=== PATIENT | male | born 1945 | race Caucasian/White ===

== ENCOUNTER 2023-08-19 14:23 | Inpatient (IN) | payer MEDICARE, BC ==
[2023-08-19] VITALS (217 sets, daily range): BP systolic 111–202; BP diastolic 68–124; PULSE 61–75; TEMP 98; O2SAT 88–100
[~2023-08-19] VITALS: Ht 177.8 cm; Wt 77.7 kg
[2023-08-19 14:48] LABS: BASO % 0.3 % (0.0-2.0); EOS % 0.1 % (0.0-4.0); GRAN # 5.9 K/mm3 (1.4-6.5); GRAN % 80.6 % (42.2-75.2); HEMOGLOBIN 12.4 g/dl (13.5-18.0); LYMPH # 0.9 K/mm3 (1.2-3.4); LYMPH % 11.9 % (20.0-51.0); MEAN CELL VOLUME 95 fl (80.0-100.0); MEAN CORPUSCULAR HEMOGLOBIN 31 pg (27-31); MEAN CORPUSCULAR HGB CONC 33 g/dl (33.0-37.0); MEAN PLATELET VOLUME 10.1 fl (7.4-10.4); MONO # 0.5 K/mm3 (0.1-0.6); MONO % 6.7 % (1.7-9.3); PLATELET COUNT 174 K/mm3 (130-400)
[2023-08-19 15:02] LABS: INR 2.8 (0.8-3.0); PROTHROMBIN TIME 29.6 SECONDS (9.7-12.8)
[2023-08-19 15:13] LABS: ALBUMIN 3.8 g/dL (3.4-4.8); BILIRUBIN,TOTAL 3.4 mg/dL (0.2-1.2); CALCIUM 9.2 mg/dL (8.4-10.2); CREATININE, serum 2.24 mg/dL (0.72-1.25); POTASSIUM 3.7 mEq/L (3.5-4.5); TOTAL PROTEIN 6.5 g/dl (6.2-8.1)
[2023-08-19 15:22] LABS: TROPONIN-I 0.062 ng/mL (0.00-0.033)
[2023-08-19 15:30] LABS: URINE APPEARANCE CLEAR (CLEAR/HAZY); URINE BLOOD TRACE (NEGATIVE); URINE COLOR YELLOW (YELLOW); URINE GLUCOSE NEGATIVE (NEGATIVE); URINE KETONE 1+ (NEGATIVE); URINE NITRATE NEGATIVE (NEGATIVE); URINE PROTEIN(semi-quant) TRACE (NEGATIVE); URINE UROBILINOGEN 0.2 E.U/dL (0.2-1.0)
[2023-08-19] MEDS ORDERED: niCARdipine 200 ML IV ONE (15:30)
[2023-08-19 15:41] LABS: COLLECTION METHOD CLEAN CATCH
[2023-08-19] MEDS ORDERED: NS 1,000 ML IV ONE (15:45)
[2023-08-19] MEDS ORDERED: Ondansetron 4 MG/2 ML VIAL IV ONE (16:15)
[2023-08-19] MEDS ORDERED: Iodixanol-320 100 ML BOTTLE IV ONE (16:28)
[2023-08-19] MEDS ORDERED: NS 100 ML IV SCH (16:28)
[2023-08-19] MEDS ORDERED: JARDIANCE25 PO (16:45)
[2023-08-19] MEDS ORDERED: XYOSTED SQ (16:46)
[2023-08-19] MEDS ORDERED: FLOMAX 0.40.4 MG/CAP PO (16:46)
[2023-08-19] MEDS ORDERED: GLUCOPHAGE XR500 M1 PO (16:46)
[2023-08-19] MEDS ORDERED: OZEMPIC0.25 MG/02 SQ (16:47)
[2023-08-19] MEDS ORDERED: XARELTO20 MG PO (16:47)
[2023-08-19] MEDS ORDERED: TOPROL XL 50MG50 MG PO (16:48)
[2023-08-19] MEDS ORDERED: LIPITOR 10MG10 MG PO (16:49)
[2023-08-19] MEDS ORDERED: Ondansetron 4 MG/2 ML VIAL IV PRN (17:30)
[2023-08-19 17:32] LABS: MAGNESIUM 1.9 mg/dL (1.6-2.6); PHOSPHOROUS 4.1 mg/dL (2.3-4.7)
[2023-08-19] MEDS ORDERED: PREDNISONE20 MG PO (17:40)
--- NOTE | 2023-08-19 18:08 | NUR ---
PT ARRIVED TO ICU VIA BED ACCOMPANIED BY ED RN AND AND DAUGHTER. BP IS 160S/90S. CARDENE RUNNING IV INFUSION AT 2.5. PT HOOKED UP TO CRM MONITOR. PT IS INTERMITTENTLY ALERT AND ORIENTED X 2. PT AND FAMILY ORIENTED TO UNIT, ROOM, CALL LIGHT AND VISITING HOURS. ALL ALARMS ARE ON. FAMILY EDUCATED ON PT CONDITION AND PLAN OF CARE. CALL LIGHT IN REACH. PLAN OF CARE ONGOING.
[2023-08-19] MEDS ORDERED: niCARdipine 200 ML IV SCH (18:15)
[2023-08-19] MEDS ORDERED: *Potassium Replacement Protocol MC SCH (18:45)
--- NOTE | 2023-08-19 19:15 | NUR ---
REPORT RECEIVED FROM MACKENZIE MARLOW. PATIENT IN BED FIDGETING AND IMPULSIVE. REDIRECTED PATIENT. VERIFIED THAT BED ALARM IS ON. PATIENT ALERT AND ORIENTED X2 TO X1. CARDENE DRIP INFUSING AT THIS TIME, SEE DRIP TITRATION.
[2023-08-19] MEDS ORDERED: Albuterol/Ipratropium 3 MG-0.5 MG/3 ML Neb Soln IH PRN (20:00)
[2023-08-19] MEDS ORDERED: Dextrose 50% Water 25 GM/50 ML SYRINGE IV PRN (20:15)
[2023-08-19] MEDS ORDERED: Glucagon 1 MG VIAL IM PRN (20:15)
[2023-08-19] MEDS ORDERED: Dextrose (Glucose) 15 GM (4 x 3.75 GM) Chewable TABLET PACK PO PRN (20:15)
[2023-08-19] MEDS ORDERED: Furosemide 40 MG/4 ML VIAL IV ONE (20:45)
[2023-08-19] MEDS ORDERED: Insulin Lispro (HumaLOG) SQ SCH (21:00)
[2023-08-19] MEDS ORDERED: Atorvastatin 10 MG TAB PO SCH (21:00)
[2023-08-20] VITALS (786 sets, daily range): BP systolic 148–171; BP diastolic 73–100; PULSE 56–85; TEMP 98.1–98.7; O2SAT 74–100
[2023-08-20 04:46] LABS: BASO % 0.2 % (0.0-2.0); EOS % 0.1 % (0.0-4.0); GRAN # 7.4 K/mm3 (1.4-6.5); GRAN % 68.6 % (42.2-75.2); HEMATOCRIT 41.4 % (42.0-52.0); HEMOGLOBIN 14.2 g/dl (13.5-18.0); LYMPH # 1.9 K/mm3 (1.2-3.4); LYMPH % 17.8 % (20.0-51.0); MEAN CORPUSCULAR HEMOGLOBIN 31 pg (27-31); MEAN CORPUSCULAR HGB CONC 34 g/dl (33.0-37.0); MEAN PLATELET VOLUME 10.5 fl (7.4-10.4); MONO # 1.4 K/mm3 (0.1-0.6); PLATELET COUNT 213 K/mm3 (130-400)
[2023-08-20 04:50] LABS: MEAN CELL VOLUME 90 fl (80.0-100.0)
[2023-08-20 05:09] LABS: BILIRUBIN,TOTAL 3.5 mg/dL (0.2-1.2); CREATININE, serum 1.65 mg/dL (0.72-1.25); POTASSIUM 3.2 mEq/L (3.5-4.5)
[2023-08-20] MEDS ORDERED: Rivaroxaban 15 MG TAB PO SCH (09:00)
--- NOTE | 2023-08-20 09:28 | NUR ---
cable worker helper notes patient has altered mental status. SW notes patient's PCP is currently listed as Dr. De Leon whom has retired. SW contacted Lela from [facility] whom expressed patient's new doctor is Dr. Strickland. SW asked if patient has a DPOA-HC on file and patient does not. MARIA GUADALUPE and SW student met with patient to complete assessment. Patient confirmed he lives in [place] with his . SW asked to confirm patient's 's phone number, Eloisa, number on chart is [phone] and SW notes there is a number on patient's board with [phone]. Patient stated social work case manager needs to call the FBI because those numbers are incorrect. Patient stated his 's cell is [phone] and home is [phone]. SW explained those are the numbers listed for her. MARIA GUADALUPE notes patient's daughter, Shaniqua's phone number is listed as [phone] although patient was adamant that was his phone number. Patient again stated to call the FBI because " I am not apart of this study." Patient feels he was kidnapped and brought to the hospital. Patient confirmed PCP is Dr. Strickland, pharmacy is [facility]. SW asked about a DPOA-HC. 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 Patient asked for juice and water as payment for answering SW questions. SW relayed this to patient's nurse whom expressed they would get this to the patient. SW left a voicemail for patient's . Patient's daughter came to visit patient, MARIA GUADALUPE asked for additional information on patient. Patient's daughter, Shaniqua, explained her mother was on her way and would be able to provide this information. MARIA GUADALUPE met with patient's , Eloisa, whom confirmed her cell is P# [phone] and home P # [phone]. Eloisa confirmed patient does not have a DPOA-HC. No DME and is independent with ADLS at home normally. Patient was normally able to transport himself to and from appointments. MARIA GUADALUPE asked if the plan was for patient to return home at time of discharge. Eloisa asked if patient would discharge today, MARIA GUADALUPE explained it was unlikely unless he was medically ready for discharge. MARIA GUADALUPE asked if once he is medically ready for discharge if she had any concerns with him returning home. Eloisa stated no the plan was for him to go home when medically ready. MARIA GUADALUPE notified Harmony Cool, SW Director, of conversation with patient. Discharge plan: Home
[2023-08-20] MEDS ORDERED: hydrALAZINE 25 MG TAB PO SCH (10:28)
[2023-08-20] MEDS ORDERED: Potassium Bicarbonate/Citrate 20 MEQ Effervescent TAB PO SCH (11:00)
[2023-08-20] MEDS ORDERED: Clopidogrel 75 MG TAB PO SCH (16:40)
[2023-08-20] MEDS ORDERED: Hyoscyamine 0.125 MG Sublingual TAB PO PRN (17:00)
--- NOTE | 2023-08-20 20:00 | NUR ---
PER REPORT, PT IS CONFUSED. PT IS AWARE OF THE CONFUSION AND WILL TRY TO REDIRECT THE CONVERSATION TO AVOID ANSWERING THE QUESTION. PT STABLE ON ROUNDS. RESPIRATIONS EVEN AND UNLABORED. NO SIGN OF DISTRESS AT THIS TIME. CONTINUE WITH PLAN OF CARE.
--- NOTE | 2023-08-20 20:31 | NUR ---
Replaced 16F almonte with a 18F three way catheter for CBI purposes. Bleeding inside the previoue almonte drainage, almonte changed, irrigated with continuous NS. No cramping/ spasms at this time. Output is light pink. Tolerated sterile procedure well.
[2023-08-21] VITALS (891 sets, daily range): BP systolic 124–159; BP diastolic 69–99; PULSE 56–80; TEMP 98.5–98.7; O2SAT 82–100
[2023-08-21] MEDS ORDERED: NS Irrig Soln 3000 ML SOLN IR PRN (02:29)
[2023-08-21 04:33] LABS: BASO % 0.3 % (0.0-2.0); EOS # 0.1 K/mm3 (0.0-0.7); EOS % 0.6 % (0.0-4.0); GRAN # 8.9 K/mm3 (1.4-6.5); GRAN % 73.9 % (42.2-75.2); HEMATOCRIT 40.1 % (42.0-52.0); HEMOGLOBIN 13.9 g/dl (13.5-18.0); LYMPH # 1.7 K/mm3 (1.2-3.4); MEAN CELL VOLUME 89 fl (80.0-100.0); MEAN CORPUSCULAR HEMOGLOBIN 31 pg (27-31); MEAN CORPUSCULAR HGB CONC 35 g/dl (33.0-37.0); MONO # 1.3 K/mm3 (0.1-0.6); MONO % 10.9 % (1.7-9.3); PLATELET COUNT 229 K/mm3 (130-400); RED BLOOD COUNT 4.52 M/mm3 (4.20-5.60)
[2023-08-21 04:52] LABS: ALBUMIN 3.3 g/dL (3.4-4.8); BILIRUBIN,TOTAL 2.3 mg/dL (0.2-1.2); CALCIUM 9.2 mg/dL (8.4-10.2); CREATININE, serum 1.44 mg/dL (0.72-1.25); POTASSIUM 3.2 mEq/L (3.5-4.5); TOTAL PROTEIN 5.7 g/dl (6.2-8.1)
--- NOTE | 2023-08-21 07:21 | NUR ---
CBI INFUSING WITHOUT COMPLICATIONS, PINK TINGED URINE. NO COMPLICATIONS AT THIS TIME.
[2023-08-21] MEDS ORDERED: Potassium Bicarbonate/Citrate 20 MEQ Effervescent TAB PO SCH (08:00)
[2023-08-21] MEDS ORDERED: Heparin 5,000 UNITS/ML 1 ML VIAL IV PRN (09:00)
[2023-08-21] MEDS ORDERED: Heparin/D5W 250 ML IV SCH (09:00)
[2023-08-21 10:18] LABS: PARTIAL THROMBOPLASTIN TIME 31.2 SECONDS (26.0-37.0)
--- NOTE | 2023-08-21 11:53 | NUR ---
Data: Patient was sleeping during Seo Engineer rounds. Patient's Family stated that their Agricultural Adviser was on his way. Agricultural Adviser arrived while Seo Engineer was assisting Family with getting a recliner into the room. Assessment: A Family member had not slept and needed a space to be more comfortable during her visitation. Plan of Care: Seo Engineer provided supportive listening; found a recliner for the room. Family expressed their gratitude.
[2023-08-21 16:50] LABS: INR 1.3 (0.8-3.0); PROTHROMBIN TIME 14.3 SECONDS (9.7-12.8)
--- NOTE | 2023-08-21 20:00 | NUR ---
THIS NURSE WAS UNABLE TO INPUT THE PATIENTS ASSESSMENT BEFORE HE TRANSITIONED UP TO THE MEDICAL FLOOR. WAS UNABLE TO INPUT AN ICU ASSESSMENT AND COMPLETED THE MED/SURG ASSESSMENT. THE PATIENT WAS NOT ON A VENTILATOR, DID NOT HAVE AN CHRISTOPHER OR SWAN-ARACELIS CATHETER IN PLACE. THE PATIENT HAS A RASS SCORE OF ZERO. THE PATIENT WAS ADMITED WITH CONFUSION. THE PATIENT IS CAM-ICU NEGATIVE.
--- NOTE | 2023-08-21 22:30 | NUR ---
PATIENT IS RESTING IN BED. ALERT TO SELF AND PRESIDENT, NOT SITUATION, DATE OR LOCATION. PT WITH A [address] IYER CATHETER IN PLACE FOR CBI. PT CATHETER IS DRAINING A REDDISH/PINKISH COLOR. ROOM AIR, VITAL SIGNS STABLE. HEPARIN DRIP INFUSING AT 1450 UNITS. PT HAS BEEN EDUCATED ON NOT GETTING OUT OF THE BED AND TO CALL FOR ASSISTANCE. THE BED ALARM IS ACTIVATED AND THE PATIENT HAS THE CALL ROBERTSON. NO FAMILY AT THE BEDSIDE AT THIS TIME.
--- NOTE | 2023-08-21 22:51 | NUR ---
patient arrived from ICU around 2200, alert and oriented x3. denies chest pain and shortness of breath. IV in LF is patent, site is clean dry and intact with heparin gtt running at 14.5 ml/hr. CBI in process, urine is a light pink color and clear with 3-way almonte catheter in place. no skin abnormalities noted. pt has no further needs, questions, or concerns at this time. fall precautions in place, call light within reach. will continue to monitor.
[2023-08-22] VITALS (14 sets, daily range): BP systolic 133–172; BP diastolic 65–84; PULSE 52–77; TEMP 97.4–98.2
[2023-08-22 06:44] LABS: BASO % 0.4 % (0.0-2.0); EOS # 0.1 K/mm3 (0.0-0.7); EOS % 1.7 % (0.0-4.0); GRAN # 4.7 K/mm3 (1.4-6.5); HEMOGLOBIN 13.7 g/dl (13.5-18.0); LYMPH # 2.1 K/mm3 (1.2-3.4); LYMPH % 27.5 % (20.0-51.0); MEAN CELL VOLUME 89 fl (80.0-100.0); MEAN CORPUSCULAR HEMOGLOBIN 31 pg (27-31); MEAN CORPUSCULAR HGB CONC 35 g/dl (33.0-37.0); MONO # 0.8 K/mm3 (0.1-0.6); MONO % 10.1 % (1.7-9.3); PLATELET COUNT 232 K/mm3 (130-400); RED BLOOD COUNT 4.39 M/mm3 (4.20-5.60); REDCELL DISTRIBUTION WIDTH-CV 12.9 % (11.5-14.5)
[2023-08-22 06:57] LABS: ALBUMIN 3.1 g/dL (3.4-4.8); BILIRUBIN,TOTAL 1.8 mg/dL (0.2-1.2); CALCIUM 8.7 mg/dL (8.4-10.2); CREATININE, serum 1.07 mg/dL (0.72-1.25); POTASSIUM 3.4 mEq/L (3.5-4.5); TOTAL PROTEIN 5.5 g/dl (6.2-8.1)
--- NOTE | 2023-08-22 08:30 | NUR ---
PT RESTING IN BED UPON ENTERING, RISE AND FALL OF CHEST UPON ENTERING. FAMILY AT BEDSIDE. PT VERY SLEEPY NEEDING MULTIPLE ATTEMPTS TO WAKE HIM, DAUGHTER REPORTS THAT PT CALLED HER EARLY IN THE MORNING AND SEEMED MORE ORIETNED. DURING ASSESSMENT THIS NURSE ASKING PT TO VERIY NAME AND DATE OF M[place]LE TIME WITH NO ANSWER. PT FINALLY GAVE HIS DATE OF BUT REFUSED TO TELL THIS NURSE HIS NAME. WHEN ASKED WHERE HE WAS PT REPORTS "[place]". DAUGHTER AT BEDSIFE GETTING FRUSTRATED AND STATES THAT PT WAS COHERENT EARLIER. PT DENIES PAIN. HEPARIN RUNNING AT 14.5MLS/HR IN LEFT AC. CONTINUOUS BLADDER IRRIGATION RUNNING INTO IYER WITHOTU COMPLICATIONS. DURING SHIFT REPORT PEACH TINGED FLUID NOTED AND CURRENTLY REDDISH URINE NOTED. PT DENIES NEEDS. BED IN LOWEST POSITION, CALL LIGHT IN REACH, BED ALARM ON
[2023-08-22] MEDS ORDERED: Potassium Bicarbonate/Citrate 20 MEQ Effervescent TAB PO SCH (09:45)
--- NOTE | 2023-08-22 19:10 | NUR ---
THIS NURSE AND MACKENZIE PARMAR AT NURSING STATION POST REPORT WHEN THE PTS CHAIR ALARM GOES OFF AND A THUD WAS HEARD FROM THE BEDSIDE TABLE. UPON ENTERING PT IS ON HIS KNEES ATTEMPTING TO STAND AND BEDSIDE TABLE NO LONGER OVER PT. THIS NURSE AND TELEGRAPH MECHANIC AT BEDSIDE AND HELPED PT BACK TO THE CHAIR. PT DENIES HITTING HIS HEAD BUT MACKENZIE NOVOA TOLD THIS NURSE THAT SHE SAW PT HIT HIS HEAD. VITALS TAKEN AND DENA QUEEN CALLED AND UPDATED. THIS NURSE NOTIFIED HIM THAT PT IS ON A HEPARIN DRIP AND CURRENTLY HAS CONTINOUS BLADDER IRRIGATION GOING. JUJU RN AT BEDSIDE AND PT TRANSFERRED TO BED WITH WALKER. PT DENIES PAIN AT THIS TIME. SCANT AMOUNT OF BLEEDING NOTED AT PREVIOUS DISCONTINUED IV IN LEFT AC. DENA QUEEN AT BEDSIDE AND ASSESSING PT. PT HAS NO OBVIOUS NEEDS AND IMAGING ORDERED
[2023-08-23] VITALS (18 sets, daily range): BP systolic 105–164; BP diastolic 42–85; PULSE 58–86; TEMP 97.6–98.5
--- NOTE | 2023-08-23 04:27 | NUR ---
PT HAS CBI GOING T0 DEPENDENT DRAINAGE. PROVIDER NOTIFIED THAT PATIENT DOES NOT HAVE UROLOGY CONSULTED, WILL ALSO PASS ON TO DAY NURSE.
[2023-08-23] MEDS ORDERED: LR 1,000 ML IV SCH (05:00)
[2023-08-23 06:28] LABS: BASO % 0.3 % (0.0-2.0); EOS # 0.2 K/mm3 (0.0-0.7); EOS % 2.4 % (0.0-4.0); GRAN % 65.8 % (42.2-75.2); HEMATOCRIT 39.1 % (42.0-52.0); HEMOGLOBIN 13.6 g/dl (13.5-18.0); LYMPH # 1.7 K/mm3 (1.2-3.4); LYMPH % 21.9 % (20.0-51.0); MEAN CELL VOLUME 90 fl (80.0-100.0); MEAN CORPUSCULAR HEMOGLOBIN 31 pg (27-31); MEAN CORPUSCULAR HGB CONC 35 g/dl (33.0-37.0); MEAN PLATELET VOLUME 10.1 fl (7.4-10.4); MONO # 0.7 K/mm3 (0.1-0.6); MONO % 9.3 % (1.7-9.3); PLATELET COUNT 251 K/mm3 (130-400); RED BLOOD COUNT 4.34 M/mm3 (4.20-5.60)
[2023-08-23 06:50] LABS: CALCIUM 8.8 mg/dL (8.4-10.2); CREATININE, serum 1.13 mg/dL (0.72-1.25); POTASSIUM 3.8 mEq/L (3.5-4.5)
[2023-08-23] MEDS ORDERED: Lidocaine PF 2% (20 MG/ML) 5 ML VIAL ONE (10:19)
[2023-08-23] MEDS ORDERED: Hydrocortisone 1% Cream 30 GM TUBE TP PRN (12:45)
--- NOTE | 2023-08-23 12:53 | NUR ---
Bedside report completed with Luis Carlos MANN. Call light within reach, telemetry box in place, first set of vitals reviewed. Luis Carlos MANN denies questions/concerns at this time.
[2023-08-23] MEDS ORDERED: Regadenoson 0.08 MG/ML 5 ML SYRINGE IV SCH (13:43)
[2023-08-23] MEDS ORDERED: Potassium Bicarbonate/Citrate 20 MEQ Effervescent TAB PO ONE (14:00)
--- NOTE | 2023-08-23 15:36 | NUR ---
Lead Software Developer and MARIA GUADALUPE [place] met with patient to complete DPOA-HC. Patient verbalized understanding of DPOA for Healthcare decisions, however questioned any limits to decisions that DPOA can make. MARIA GUADALUPE advised this would give his designated person authority to make medical decisions if he were unable. Patient chose to designate his , Eloisa and daughter, Mica. 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 Patient provided signature and MARIA GUADALUPE and MARIA GUADALUPE [place] witnessed it. MARIA GUADALUPE placed a copy in chart, then provided original and copies to patient.
--- NOTE | 2023-08-23 18:04 | NUR ---
PT HEPARIN GTT WAS STOPPED BY RETAIL ANALYST STAFF WHILE PT WAS DOWN GETTING NANCY/CARDIOVERSION. CARDIOGRAPHER NOTICED THIS WHEN PT ARRIVED BACK UNIT. CARDIOGRAPHER THEN ASKED HOSPITALIST IF THEY WANTED THE HEPARIN GTT STARTED AGIAN OR LEFT ON HOLD- THEY DIRECTED CARDIOGRAPHER TO LEAVE THE HEPARIN ON HOLD UNTIL AFTER LEXISCAN RESULTS IN CASE PATIENT NEEDED TO GO TO RETAIL ANALYST. HOSPITALIST CALLED CARDIOGRAPHER AROUND [id number] AND SAID THAT HEPARIN GTT WILL NEED TO BE STARTED AGAIN BUT WE WILL NEED NEW BASELINE LABS AND TO REBOLUS THE PATIENT AND FOLLOW ORDER SET
[2023-08-23 19:24] LABS: PARTIAL THROMBOPLASTIN TIME 31.2 SECONDS (26.0-37.0)
--- NOTE | 2023-08-23 20:30 | NUR ---
UPON SHIFT ASSESSMENT, NANCY WAS AWAKE IN BED WITH BEDSIDE. ALTHOUGH HE SEEMED AXO X 4, CONVERSATION WAS NOT LUCID. PATIENT APPEARED TO CONFUSE STANDARDS OF LAW PRACTICE WITH STANDARDS OF MEDICAL INTERVENTIONS, INTERWINING PHRASES IN A NONSENSICAL MANNER, "HOW MANY POINTS IN THAT (POINTING TO IV BAG) WILL RESULT IN DIVORCE." THIS NURSE REPEATEDLY RE-ORIENTED AND PROVIDED EDUCATION ON TREATMENT AND PROCEDURES. CURRENT VS ARE WNL. TELE CURRENTLY SHOWS NS. NEUROS ARE WNL, HOWEVER, PATIENT'S JOKED THAT HE IS A MESSY EATER BECAUSE HE "...KEEPS MISSING HIS MOUTH." THIS NURSE DID NOT OBSERVE HIM EATING. COORDINATION SLUGGISH. BED ALARM BENEFIT SPECIALIST LIGHT WITHIN REACH.
[2023-08-23] MEDS ORDERED: Atorvastatin 40 MG TAB PO SCH (21:00)
--- NOTE | 2023-08-23 23:39 | NUR ---
ALERTED BY TELE-PATIENT HAS HAD MOBITZ tYPE 1 HEART BLOCK BUT IS CURRENTLY IN NS. CALL PLACED TO [facility]OSPITAL[facility]. TORB FOR EKG IN THE EVENT THAT ANOTHER ARRYTHMIA APPEARS. CALL PLACED TO TELE TO INQUIRE ABOUT TYPE 1 HEART CAN-REPORT IS THAT THERE ARE OCCASSIONALY MISSED BEATS WITH P-WAVES CLOSE TO T WAVES. ORDER FOR EKG PLACED.
[2023-08-24] VITALS (12 sets, daily range): BP systolic 113–159; BP diastolic 53–83; PULSE 56–72; TEMP 97.6–98.7
--- NOTE | 2023-08-24 02:40 | NUR ---
CALL PLACED TO HOSPITALISTCASPER. DURING DAYSHIFT, CBI WAS DC'D AND IYER PULLED. THROUGHOUT THE NIGHT PATIENT DID NOT URINATE. BLADDER SCAN REVEALED 455 ML URINE. URGED PATIENT TO TRY TO VOID AND ONLY 10 ML BLOOD WAS URINATED.TORB TO RESTART CBI WITH 20 SLOVAK IYER GIVEN. UROLOGY CONSULT PLACED. UPON INTIAL INSERTION OF IYER 200 ML DEWEY RED FLUID WAS VOIDED AND DRAINAGE SEEMED TO STALL. APPEALS SPECIALIST IRRIGATED AND BLOOD TINGED FLUID IS DRAINING FREELY INTO IYER BAG. CBI WAS RESUMED. PATIENT NOT TOLERATING INTERVENTIONS WELL AND IS FRUSTRATED. PATIENT EDUCATION WAS PROVIDED ON EMEREGENT NEED TO IRRIGATED BLADDER.
[2023-08-24] MEDS ORDERED: NS Irrig Soln 3000 ML SOLN IRP PRN (03:00)
[2023-08-24 05:15] LABS: BASO % 0.2 % (0.0-2.0); EOS # 0.2 K/mm3 (0.0-0.7); EOS % 2.7 % (0.0-4.0); GRAN % 73.4 % (42.2-75.2); HEMATOCRIT 38.4 % (42.0-52.0); HEMOGLOBIN 13.1 g/dl (13.5-18.0); LYMPH # 1.2 K/mm3 (1.2-3.4); LYMPH % 14.8 % (20.0-51.0); MEAN CELL VOLUME 90 fl (80.0-100.0); MEAN CORPUSCULAR HEMOGLOBIN 31 pg (27-31); MEAN CORPUSCULAR HGB CONC 34 g/dl (33.0-37.0); MEAN PLATELET VOLUME 9.8 fl (7.4-10.4); MONO # 0.7 K/mm3 (0.1-0.6); MONO % 8.5 % (1.7-9.3); PLATELET COUNT 276 K/mm3 (130-400); RED BLOOD COUNT 4.27 M/mm3 (4.20-5.60); REDCELL DISTRIBUTION WIDTH-CV 13.2 % (11.5-14.5)
[2023-08-24 05:30] LABS: PARTIAL THROMBOPLASTIN TIME 52.3 SECONDS (26.0-37.0)
[2023-08-24 05:32] LABS: CREATININE, serum 1.03 mg/dL (0.72-1.25)
--- NOTE | 2023-08-24 06:45 | NUR ---
PT RESTING IN BED. PT HAS CBI RUNNING WITH CLEAR YELLOW URINE. HEPARIN DRIP RUNNING. PT NPO FOR POSSIBLE CARDIAC CATH. BED ALARM ACTIVE. PT APPEARS AFIB ON TELE BRADYING DOWN TO 45 THEN BACK TO THE 60'S. 0745-SPOKE WITH REGARDING CONSULT. STATES WILL SEE LATER TODAY. 0800-FREDDY RN WITH CARDIOLOGY PAGED. 0815-SHAKIRA RN WITH CARDIOLOGY PAGED. SPOKE Bryce ROSENBERG TO CLARIFY PLAN FOR TODAY. STATES SHE WILL HAVE FREDDY MANN CALL ME WITH UPDATED PLAN.
--- NOTE | 2023-08-24 08:37 | NUR ---
,P BEDSIDE. UPDATING FAMILY. AWAITING CARDIOLOGY FOR PLAN ON CARDIAC CATH.
[2023-08-24] MEDS ORDERED: Docusate Sodium 100 MG CAP PO SCH (09:00)
[2023-08-24] MEDS ORDERED: Polyethylene Glycol 3350 17 GM PDS PO SCH (09:00)
[2023-08-24] MEDS ORDERED: Apixaban 5 MG TAB PO SCH (09:07)
--- NOTE | 2023-08-24 12:59 | NUR ---
0997-FAMILY CAME OUT OF THE ROOM YELLING THEY NEEDED HELP. STATED PT SNEEZED WHILE EATING BREAKFAST THEN BECAME VERY LETHARGIC. PT HAS NOTICABLE LEFT SIDED FACIAL DROOP. PT NOT ABLE TO SPEAK OR ANSWER QUESTIONS. PERRLA INTACT. PT HAS WEAK ELECTRICAL LINE WORKER ON LEFT AND SLIGHLY STRONGER ELECTRICAL LINE WORKER ON RIGHT. PT ABLE TO HOLD BILATERAL ARMS UP AGAINST GRAIVITY FOR 3 SECONDS. VSS. AND KENISHA FERNANDES ON FLOOR AND CAME BEDSIDE. HEAD CT ORDERED. OKAY TO CONTINUE HEPARIN PER . CALLED AND CAME BEDSIDE. PT TAKEN TO CT. PT'S FACIAL DROOP SLIGHTLY BETTER AND PT ANSWERING YES/NO QUESTIONS. 1100-PT TALKING IN SENTANCES, BUT IS NOT FULLY ORIENTED. SLIGHT LEFT FACIAL DROOP STILL NOTED. 1230-SPEECH CALLED FOR JACQUELIN.
[2023-08-24 13:10] LABS: PARTIAL THROMBOPLASTIN TIME 123.5 SECONDS (26.0-37.0)
--- NOTE | 2023-08-24 14:20 | NUR ---
Call Circuit Worker spoke with DENA Ledesma during rounds who advised patient had an acute change and there is concern for stroke. Later in the day, SW met with patient's and daughter outside of the room while patient was working with therapy. SW discussed post acute rehab and patient's family agree. First and only preference at this time is IPR. Patient's daughter feels patient would not want to go to SNF. SW contacted [facility] IPR Director and gave referral.
--- NOTE | 2023-08-24 19:42 | NUR ---
Call recieved from lab Ptt critical at 221. Heparin gtt stopped per protocol, however asked for redraw as this value is 2x the previous draw and drip rate was 1750 Units/HR.
--- NOTE | 2023-08-24 20:57 | NUR ---
CALL RECIEVED FROM LAB-PTT IS 141-TURNED PUMP OFF PER PROTOCOL. NEXT REDRAW IN 2HRS.
[2023-08-25] VITALS (12 sets, daily range): BP systolic 107–150; BP diastolic 55–81; PULSE 52–65; TEMP 97.7–98.5
[2023-08-25 00:02] LABS: PARTIAL THROMBOPLASTIN TIME 36.5 SECONDS (26.0-37.0)
--- NOTE | 2023-08-25 03:00 | NUR ---
ENTERED PATIENT'S ROOM. LOOP RECORDER INSCISION SITE HAD MODERATE BLEEDING. ABD PAD SOAKED. DRESSING CHANGED, ICE PACK APPLIED, GOWN AND BED LINENS CHANGED-NO FURTHER BLEEDING NOTED. IYER CARE PROVIDED.
[2023-08-25 07:00] LABS: BASO % 0.4 % (0.0-2.0); EOS # 0.2 K/mm3 (0.0-0.7); EOS % 2.8 % (0.0-4.0); GRAN # 4.2 K/mm3 (1.4-6.5); GRAN % 61.5 % (42.2-75.2); HEMOGLOBIN 11.9 g/dl (13.5-18.0); LYMPH # 1.7 K/mm3 (1.2-3.4); LYMPH % 25.3 % (20.0-51.0); MEAN CELL VOLUME 94 fl (80.0-100.0); MEAN CORPUSCULAR HEMOGLOBIN 31 pg (27-31); MEAN CORPUSCULAR HGB CONC 33 g/dl (33.0-37.0); MEAN PLATELET VOLUME 10.3 fl (7.4-10.4); MONO # 0.7 K/mm3 (0.1-0.6); MONO % 9.6 % (1.7-9.3); PLATELET COUNT 275 K/mm3 (130-400); REDCELL DISTRIBUTION WIDTH-CV 13.1 % (11.5-14.5)
[2023-08-25 07:04] LABS: HEMATOCRIT 36.6 % (42.0-52.0)
[2023-08-25 07:16] LABS: PARTIAL THROMBOPLASTIN TIME 92.3 SECONDS (26.0-37.0)
[2023-08-25 07:30] LABS: CALCIUM 8.8 mg/dL (8.4-10.2); CREATININE, serum 0.9 mg/dL (0.72-1.25); POTASSIUM 3.6 mEq/L (3.5-4.5)
[2023-08-25] MEDS ORDERED: Apixaban 5 MG TAB PO SCH (09:00)
--- NOTE | 2023-08-25 09:00 | NUR ---
HEPARIN DRIP WAS STOPPED BY THIS NURSE PER EMAR HOLD.
--- NOTE | 2023-08-25 20:00 | NUR ---
Assessment complete. A&O to self-conversation confused. VS WNL. TELE reporting SR. On RA. CBI infusing at a slow rate with light pink output noted. Family is at bedside. Right hand 20g flushes without difficulty. Discussed NPO status at 0000. Plan of care discussed for meds/CBI/calling for questions/concerns. Verbalizes understanding. Call light in reach/bed alarm on. Will monitor.
[2023-08-26] VITALS (12 sets, daily range): BP systolic 98–145; BP diastolic 58–74; PULSE 50–63; TEMP 97.9–98.5
--- NOTE | 2023-08-26 01:25 | NUR ---
Resting in bed eyes closed. No s/s of pain or discomfort noted. CBI infusing at a slow rate with light pink output noted. Call light in reach/bed alarm on. Will monitor.
--- NOTE | 2023-08-26 05:36 | NUR ---
Patient rested off an on this shift. CBI still running at a slow rate with light pink clear output. Is alert and oriented to place only. TELE reporting SR. VS stable. Right hand 20g flushes without difficulty. Currently on RA. Denies current questions/concerns. Call light in reach/bed alarm on. Will monitor.
--- NOTE | 2023-08-26 07:55 | NUR ---
Pt to CT via w/c.
[2023-08-26] MEDS ORDERED: Iohexol 300 - 100 ML VIAL IV ONE (08:04)
[2023-08-26] MEDS ORDERED: NS 100 ML IV SCH (08:05)
--- NOTE | 2023-08-26 08:25 | NUR ---
Pt returns to room from CT scan. and daughter at bedside. assisting patient with meal.
[2023-08-26 11:16] LABS: HEMOGLOBIN 11.9 g/dl (13.5-18.0); MEAN CELL VOLUME 93 fl (80.0-100.0); MEAN CORPUSCULAR HEMOGLOBIN 31 pg (27-31); MEAN CORPUSCULAR HGB CONC 34 g/dl (33.0-37.0); PLATELET COUNT 291 K/mm3 (130-400); RED BLOOD COUNT 3.83 M/mm3 (4.20-5.60); REDCELL DISTRIBUTION WIDTH-CV 13.1 % (11.5-14.5)
[2023-08-26 11:17] LABS: HEMATOCRIT 35.5 % (42.0-52.0)
[2023-08-26 11:32] LABS: CALCIUM 8.9 mg/dL (8.4-10.2); CREATININE, serum 1.15 mg/dL (0.72-1.25); POTASSIUM 4.3 mEq/L (3.5-4.5)
--- NOTE | 2023-08-26 19:44 | NUR ---
Pt sat up in chair this morning-x1 assist with walker/ IV to RH without any s/s IV related complications. Had urogram this morning. Denies pain or needs throughout shift. Fall precautions in place. Neuro checks completed as ordered. Pt has weak welder tack strength but equal. and daughter at bedside throughout shift.
--- NOTE | 2023-08-26 20:30 | NUR ---
UPON SHIFT ASSESSMENT, NANCY WAS IN BED AWAKE AND AXO ONLY TO SELF. CBI DRAINING DEWEY RED FLUID. PATIENT DENIES ANY PAIN OR SOA. LUNG SOUNDS DIMINISHED. TELE SHOWS AFIB RATE CONTROLLED AND VS ARE WNL DRESSING OVER LOOP RECORDER PLACEMENT IS CDI. CALL LIGHT WITHIN REACH.
[2023-08-27] VITALS (7 sets, daily range): BP systolic 110–133; BP diastolic 63–75; PULSE 52–60; TEMP 97.6–98.2
[2023-08-27 06:05] LABS: BASO % 0.3 % (0.0-2.0); EOS # 0.2 K/mm3 (0.0-0.7); EOS % 2.6 % (0.0-4.0); GRAN # 4.5 K/mm3 (1.4-6.5); GRAN % 61.9 % (42.2-75.2); HEMOGLOBIN 12.2 g/dl (13.5-18.0); LYMPH # 1.9 K/mm3 (1.2-3.4); LYMPH % 25.8 % (20.0-51.0); MEAN CELL VOLUME 92 fl (80.0-100.0); MEAN CORPUSCULAR HEMOGLOBIN 31 pg (27-31); MEAN CORPUSCULAR HGB CONC 33 g/dl (33.0-37.0); MEAN PLATELET VOLUME 10.3 fl (7.4-10.4); MONO # 0.7 K/mm3 (0.1-0.6); MONO % 9.1 % (1.7-9.3); PLATELET COUNT 350 K/mm3 (130-400); RED BLOOD COUNT 3.97 M/mm3 (4.20-5.60); REDCELL DISTRIBUTION WIDTH-CV 13.1 % (11.5-14.5)
[2023-08-27 06:09] LABS: HEMATOCRIT 36.7 % (42.0-52.0)
[2023-08-27 06:25] LABS: CALCIUM 9.1 mg/dL (8.4-10.2); CREATININE, serum 1.12 mg/dL (0.72-1.25); POTASSIUM 4.1 mEq/L (3.5-4.5)
[2023-08-27] MEDS ORDERED: metFORMIN XR 500 MG TAB PO SCH (08:00)
--- NOTE | 2023-08-27 09:40 | NUR ---
Patient alert and oriented to self. Patient denies pain at this time. Patient CBI currently inplace. Patient expressed " why are we in the porch" this morning. Patient reoriented by this nurse. Patient is room air. Sepulveda drainage is red with some clots. Patient's family at bedside. call light within reach. bed at lowest position and bed alarm on.
[2023-08-27] MEDS ORDERED: LIPITOR 40MG TA40 MG PO (12:40)
[2023-08-27] MEDS ORDERED: IPRATROPIUM BROM3 M1 IH (12:40)
[2023-08-27] MEDS ORDERED: LEVSIN0.125 M1 PO (12:40)
[2023-08-27] MEDS ORDERED: APRESOLINE 25MG25 MG PO (12:40)
[2023-08-27] MEDS ORDERED: PLAVIX 75MG TAB75 MG PO (12:40)
[2023-08-27] MEDS ORDERED: ELIQUIS 5MG PO (12:40)
[2023-08-27] MEDS ORDERED: BETAPACE 80MG80 MG PO (12:41)
[2023-08-27] MEDS ORDERED: HYDROCORTISON28.4 GM TP (12:41)
[2023-08-27] MEDS ORDERED: INSULIN HUMA100 U/ML SQ (12:41)
[2023-08-27] MEDS ORDERED: MIRALAX PA17 GM/Dose PO (12:42)
[2023-08-27] MEDS ORDERED: COLACE 100100 MG/CAP PO (12:42)
[2023-08-27] MEDS ORDERED: GLUCOPHAGE XR500 M1 PO (12:42)
[2023-08-27] MEDS ORDERED: [UNRECOGNIZED DRUG - CODE] IRP (12:42)
[2023-08-27] MEDS ORDERED: RITE AID GLUCOSE4 G1 PO (12:43)
[2023-08-27] MEDS ORDERED: K-DUR20 MEQ PO (12:44)
--- NOTE | 2023-08-27 13:05 | NUR ---
Patient report was given to IPR nurse. Patient left with iv inplace and tele aswell but discontinued by ipr nurse upon arrival. Patient cbi inplace. patient family accompanied patient to IPR room.
--- NOTE | 2023-08-27 14:22 | NUR ---
Patient to discharge to [facility] today.
== END 2023-08-27 13:05 | DRG 260 ==
LOC: COL.ER 14:23 → ICU 17:26 → MEDICAL 08-21 22:00
PROVIDERS: Hospitalist; Internal Medicine; Nurse Practitioner Family; Physician Assistant; ADMIT Internal Medicine
PROC: 0JH632Z Insertion of Monitoring Device into Chest Subcutaneous Tissue and Fascia, Percutaneous Approach (ICD-10-PCS; principal; 2023-08-19)
PROC: 5A2204Z Restoration of Cardiac Rhythm, Single (ICD-10-PCS; 2023-08-19)
DX: I16.1 Hypertensive emergency (principal); G93.41 Metabolic encephalopathy; I63.49 Cerebral infarction due to embolism of other cerebral artery; J96.01 Acute respiratory failure with hypoxia; J90 Pleural effusion, not elsewhere classified; N17.9 Acute kidney failure, unspecified; G72.81 Critical illness myopathy; I11.0 Hypertensive heart disease with heart failure; I50.9 Heart failure, unspecified; R74.02 Elevation of levels of lactic acid dehydrogenase [LDH]; I48.91 Unspecified atrial fibrillation; E11.9 Type 2 diabetes mellitus without complications; D64.9 Anemia, unspecified; E78.5 Hyperlipidemia, unspecified; N40.0 Benign prostatic hyperplasia without lower urinary tract symptoms; R31.9 Hematuria, unspecified; I65.23 Occlusion and stenosis of bilateral carotid arteries; Z79.84 Long term (current) use of oral hypoglycemic drugs; Z87.891 Personal history of nicotine dependence; R53.81 Other malaise
CPT/HCPCS: A4314; A9500-JZ; C1764; J1644; J1815; J1940; J2404; J2704; J2785; J7030; Q9967

== ENCOUNTER 2023-08-27 11:15 | Inpatient (IN) | payer MEDICARE, BC ==
[~2023-08-27] VITALS: Ht 177.8 cm; Wt 79.4 kg
[~2023-08-27 11:15] MED LIST: FLOMAX 0.40.4 MG/CAP PO; GLUCOPHAGE XR500 M1 PO; JARDIANCE25 PO; LIPITOR 10MG10 MG PO; OZEMPIC0.25 MG/02 SQ; PREDNISONE20 MG PO; TOPROL XL 50MG50 MG PO; XARELTO20 MG PO; XYOSTED SQ
[2023-08-27] MEDS ORDERED: LIPITOR 40MG TA40 MG PO (12:40)
[2023-08-27] MEDS ORDERED: APRESOLINE 25MG25 MG PO (12:40)
[2023-08-27] MEDS ORDERED: PLAVIX 75MG TAB75 MG PO (12:40)
[2023-08-27] MEDS ORDERED: ELIQUIS 5MG PO (12:40)
[2023-08-27] MEDS ORDERED: IPRATROPIUM BROM3 M1 IH (12:40)
[2023-08-27] MEDS ORDERED: LEVSIN0.125 M1 PO (12:40)
[2023-08-27] MEDS ORDERED: HYDROCORTISON28.4 GM TP (12:41)
[2023-08-27] MEDS ORDERED: BETAPACE 80MG80 MG PO (12:41)
[2023-08-27] MEDS ORDERED: INSULIN HUMA100 U/ML SQ (12:41)
[2023-08-27] MEDS ORDERED: [UNRECOGNIZED DRUG - CODE] IRP (12:42)
[2023-08-27] MEDS ORDERED: MIRALAX PA17 GM/Dose PO (12:42)
[2023-08-27] MEDS ORDERED: COLACE 100100 MG/CAP PO (12:42)
[2023-08-27] MEDS ORDERED: GLUCOPHAGE XR500 M1 PO (12:42)
[2023-08-27] MEDS ORDERED: RITE AID GLUCOSE4 G1 PO (12:43)
[2023-08-27] MEDS ORDERED: K-DUR20 MEQ PO (12:44)
[2023-08-27] MEDS ORDERED: Naloxone 0.4 MG/ML VIAL IV PRN (14:15)
[2023-08-27] MEDS ORDERED: Acetaminophen 325 MG TAB PO PRN (14:15)
[2023-08-27] MEDS ORDERED: Sennosides/Docusate 8.6-50 MG TAB PO PRN (14:15)
[2023-08-27] MEDS ORDERED: Docusate Sodium 100 MG CAP PO PRN (14:15)
[2023-08-27] MEDS ORDERED: Polyethylene Glycol 3350 17 GM PDS PO PRN (14:15)
[2023-08-27 14:20] VITALS: BP 110/65; PULSE 55; TEMP 97.6
[2023-08-27 14:31] VITALS: BP_SYST 110
[2023-08-27] MEDS ORDERED: Hyoscyamine 0.125 MG Sublingual TAB PO PRN (14:45)
[2023-08-27] MEDS ORDERED: Hydrocortisone 1% Cream 30 GM TUBE TP PRN (14:45)
[2023-08-27] MEDS ORDERED: Albuterol/Ipratropium 3 MG-0.5 MG/3 ML Neb Soln IH PRN (14:45)
[2023-08-27] MEDS ORDERED: NS Irrig Soln 3000 ML SOLN IRP PRN (14:45)
[2023-08-27] MEDS ORDERED: hydrALAZINE 25 MG TAB PO SCH (17:00)
[2023-08-27] MEDS ORDERED: metFORMIN XR 500 MG TAB PO SCH (17:00)
[2023-08-27] MEDS ORDERED: Insulin Lispro (HumaLOG) SQ SCH (17:00)
[2023-08-27 17:08] VITALS: BP_SYST 110
[2023-08-27 18:00] VITALS: BP 103/60; PULSE 52; TEMP 97.6
[2023-08-27 18:19] VITALS: BP 104/64
[2023-08-27] MEDS ORDERED: Docusate Sodium 100 MG CAP PO SCH (21:00)
[2023-08-27] MEDS ORDERED: Atorvastatin 40 MG TAB PO SCH (21:00)
[2023-08-27] MEDS ORDERED: Apixaban 5 MG TABLET PO SCH (21:00)
[2023-08-27 21:12] VITALS: BP_SYST 104
[2023-08-28] VITALS (9 sets, daily range): BP systolic 104–138; BP diastolic 70–78; PULSE 54–63; TEMP 97.5–98.4
[2023-08-28] MEDS ORDERED: Glucagon 1 MG VIAL IM PRN (08:15)
[2023-08-28] MEDS ORDERED: Dextrose (Glucose) 15 GM (4 x 3.75 GM) Chewable TABLET PACK PO PRN (08:15)
[2023-08-28] MEDS ORDERED: Dextrose 50% Water 25 GM/50 ML SYRINGE IV PRN (08:15)
[2023-08-28] MEDS ORDERED: Clopidogrel 75 MG TAB PO SCH (09:00)
[2023-08-28] MEDS ORDERED: Polyethylene Glycol 3350 17 GM PDS PO SCH (09:00)
[2023-08-29] VITALS (8 sets, daily range): BP systolic 114–138; BP diastolic 67–75; PULSE 51–62; TEMP 97.8–98.2
[2023-08-29] MEDS ORDERED: Ondansetron 4 MG/2 ML VIAL IV PRN (09:15)
[2023-08-29] MEDS ORDERED: Ondansetron 4 MG TAB PO PRN (11:15)
[2023-08-30] VITALS (8 sets, daily range): BP systolic 114–124; BP diastolic 60–68; PULSE 54–60; TEMP 96.8–97.8
[2023-08-30 07:39] LABS: BASO % 0.4 % (0.0-2.0); EOS # 0.1 K/mm3 (0.0-0.7); EOS % 1.3 % (0.0-4.0); GRAN # 5.5 K/mm3 (1.4-6.5); GRAN % 65.7 % (42.2-75.2); LYMPH # 1.9 K/mm3 (1.2-3.4); LYMPH % 22.7 % (20.0-51.0); MEAN CELL VOLUME 91 fl (80.0-100.0); MEAN CORPUSCULAR HEMOGLOBIN 31 pg (27-31); MEAN CORPUSCULAR HGB CONC 34 g/dl (33.0-37.0); MEAN PLATELET VOLUME 9.8 fl (7.4-10.4); MONO # 0.8 K/mm3 (0.1-0.6); MONO % 9.4 % (1.7-9.3); PLATELET COUNT 347 K/mm3 (130-400); RED BLOOD COUNT 3.58 M/mm3 (4.20-5.60); REDCELL DISTRIBUTION WIDTH-CV 13.2 % (11.5-14.5)
[2023-08-30 07:45] LABS: HEMATOCRIT 32.6 % (42.0-52.0)
[2023-08-30 08:02] LABS: ALBUMIN 2.8 g/dL (3.4-4.8); BILIRUBIN,TOTAL 0.9 mg/dL (0.2-1.2); CALCIUM 8.9 mg/dL (8.4-10.2); CREATININE, serum 1.04 mg/dL (0.72-1.25); MAGNESIUM 1.9 mg/dL (1.6-2.6); POTASSIUM 4.6 mEq/L (3.5-4.5); TOTAL PROTEIN 5.6 g/dl (6.2-8.1)
[2023-08-30] MEDS ORDERED: Magnes Hydrox (MOM) 80 MG/ML 30 ML CUP PO ONE (17:45)
[2023-08-30] MEDS ORDERED: Sennosides/Docusate 8.6-50 MG TAB PO SCH (21:00)
[2023-08-31 05:59] VITALS: BP 111/66; PULSE 55; TEMP 97.9
[2023-08-31 08:23] VITALS: BP_SYST 111
[2023-08-31 17:23] VITALS: BP 122/62; PULSE 53; TEMP 98
[2023-08-31 19:00] VITALS: BP_SYST 122
[2023-09-01 05:36] VITALS: BP 126/61; PULSE 64; TEMP 97.5
[2023-09-01 06:38] VITALS: BP_SYST 126
[2023-09-01 17:21] VITALS: BP 146/62; PULSE 65; TEMP 97.7
[2023-09-01 19:00] VITALS: BP_SYST 146
[2023-09-02 05:17] VITALS: BP 147/71; PULSE 53; TEMP 97.6
[2023-09-02 06:55] VITALS: BP_SYST 147
[2023-09-02 16:52] VITALS: BP 124/69; PULSE 55; TEMP 98.2
[2023-09-02 19:01] VITALS: BP_SYST 124
[2023-09-03 05:30] VITALS: BP 156/73; PULSE 63; TEMP 98.7
[2023-09-03 07:00] VITALS: BP_SYST 156
[2023-09-03 18:05] VITALS: BP 126/63; BP 126/64; PULSE 72; TEMP 98.4
[2023-09-03 19:00] VITALS: BP_SYST 126
[2023-09-04 05:26] VITALS: BP 144/73; PULSE 63; TEMP 97.6
[2023-09-04 06:30] VITALS: BP_SYST 144
[2023-09-04 16:42] VITALS: BP 111/60; PULSE 53; TEMP 98.9
[2023-09-04 19:00] VITALS: BP_SYST 111
[2023-09-05 05:30] VITALS: BP 136/81; PULSE 61; TEMP 98.3
[2023-09-05 05:33] VITALS: BP 107/57; PULSE 60; TEMP 98.5
[2023-09-05 06:44] VITALS: BP_SYST 107
[2023-09-05 18:08] VITALS: BP 110/58; PULSE 58; TEMP 97.9
[2023-09-05 19:47] VITALS: BP_SYST 110
[2023-09-06 05:19] VITALS: BP 122/63; PULSE 64; TEMP 98.2
[2023-09-06 06:50] VITALS: BP_SYST 122
[2023-09-06 17:07] VITALS: BP 112/63; PULSE 55; TEMP 98.3
[2023-09-06 19:00] VITALS: BP_SYST 112
[2023-09-06] MEDS ORDERED: Melatonin 3 MG TAB PO SCH (21:00)
[2023-09-07 05:01] VITALS: BP 116/64; PULSE 52; TEMP 98.6
[2023-09-07 07:33] VITALS: BP_SYST 116
[2023-09-07 16:53] VITALS: BP 109/60; PULSE 57; TEMP 98.3
[2023-09-07 19:18] VITALS: BP_SYST 109
[2023-09-08 05:34] VITALS: BP 146/78; PULSE 83; TEMP 98.7
[2023-09-08] MEDS ORDERED: cefTRIAXone 1 G in Water For Injection,Sterile 10 ML IV SCH (18:00)
[2023-09-09 16:34] LABS: COLLECTION METHOD CLEAN CATCH
[2023-09-09 17:01] LABS: PH 6.5 (5.0-8.5); URINE APPEARANCE TURBID (CLEAR/HAZY); URINE BLOOD 2+ (NEGATIVE); URINE COLOR YELLOW (YELLOW); URINE GLUCOSE NEGATIVE (NEGATIVE); URINE KETONE NEGATIVE (NEGATIVE); URINE NITRATE NEGATIVE (NEGATIVE); URINE PROTEIN(semi-quant) 2+ (NEGATIVE); URINE UROBILINOGEN 0.2 E.U/dL (0.2-1.0)
[2023-09-09 17:13] VITALS: BP 113/60; PULSE 69; TEMP 99.2
[2023-09-09 18:02] LABS: URINE WBC >50 /hpf (0-2)
[2023-09-09 18:03] LABS: SQUAMOUS EPITHELIAL 0-2 /hpf (0-10); URINE BACTERIA NONE SEEN /hpf (NONE SEEN); URINE RBC >50 /hpf (0-2)
[2023-09-09 19:00] VITALS: BP_SYST 113
[2023-09-10 05:37] VITALS: BP 111/62; PULSE 77; TEMP 97.8
[2023-09-10 07:03] LABS: BASO % 0.2 % (0.0-2.0); EOS % 0.1 % (0.0-4.0); GRAN # 13.8 K/mm3 (1.4-6.5); LYMPH # 1.3 K/mm3 (1.2-3.4); LYMPH % 8.1 % (20.0-51.0); MEAN CELL VOLUME 94 fl (80.0-100.0); MEAN CORPUSCULAR HEMOGLOBIN 31 pg (27-31); MEAN CORPUSCULAR HGB CONC 33 g/dl (33.0-37.0); MEAN PLATELET VOLUME 10.3 fl (7.4-10.4); MONO % 5.9 % (1.7-9.3); PLATELET COUNT 230 K/mm3 (130-400); RED BLOOD COUNT 3.21 M/mm3 (4.20-5.60); REDCELL DISTRIBUTION WIDTH-CV 13.7 % (11.5-14.5)
[2023-09-10 07:06] LABS: CALCIUM 8.8 mg/dL (8.4-10.2); CREATININE, serum 2.23 mg/dL (0.72-1.25); POTASSIUM 4.8 mEq/L (3.5-4.5)
[2023-09-10 07:11] LABS: HEMATOCRIT 30.1 % (42.0-52.0)
[2023-09-10 07:30] VITALS: BP_SYST 111
[2023-09-10] MEDS ORDERED: NS 1,000 ML IV SCH ×2 (08:00→15:30)
[2023-09-10 17:44] VITALS: BP 116/58; PULSE 68; TEMP 98.3
[2023-09-10 19:00] VITALS: BP_SYST 116
[2023-09-11 05:32] VITALS: BP 148/75; PULSE 69; TEMP 98.3
[2023-09-11 06:02] LABS: BASO % 0.2 % (0.0-2.0); EOS % 0.2 % (0.0-4.0); GRAN # 10.8 K/mm3 (1.4-6.5); GRAN % 83.3 % (42.2-75.2); LYMPH # 1.1 K/mm3 (1.2-3.4); LYMPH % 8.5 % (20.0-51.0); MEAN CELL VOLUME 95 fl (80.0-100.0); MEAN CORPUSCULAR HGB CONC 33 g/dl (33.0-37.0); MEAN PLATELET VOLUME 10.4 fl (7.4-10.4); MONO # 0.9 K/mm3 (0.1-0.6); MONO % 7.3 % (1.7-9.3); PLATELET COUNT 225 K/mm3 (130-400); RED BLOOD COUNT 3.07 M/mm3 (4.20-5.60); REDCELL DISTRIBUTION WIDTH-CV 13.7 % (11.5-14.5)
[2023-09-11 06:07] LABS: HEMOGLOBIN 9.5 g/dl (13.5-18.0); MEAN CORPUSCULAR HEMOGLOBIN 31 pg (27-31)
[2023-09-11 06:08] LABS: HEMATOCRIT 29.1 % (42.0-52.0)
[2023-09-11 06:11] LABS: CALCIUM 8.5 mg/dL (8.4-10.2); CREATININE, serum 1.82 mg/dL (0.72-1.25); POTASSIUM 4.6 mEq/L (3.5-4.5)
[2023-09-11 07:00] VITALS: BP_SYST 148
[2023-09-11] MEDS ORDERED: FLOMAX 0.40.4 MG/CAP PO (10:04)
[2023-09-11] MEDS ORDERED: PLAVIX 75MG TAB75 MG PO (10:07)
[2023-09-11] MEDS ORDERED: ELIQUIS 5MG PO (10:07)
[2023-09-11] MEDS ORDERED: LIPITOR 40MG TA40 MG PO (10:08)
[2023-09-11] MEDS ORDERED: APRESOLINE 25MG25 MG PO (10:10)
[2023-09-11] MEDS ORDERED: BETAPACE 80MG80 MG PO (10:10)
[2023-09-11] MEDS ORDERED: K-DUR20 MEQ PO (10:11)
[2023-09-11] MEDS ORDERED: ZOFRAN 4MG T4 MG/TAB PO (10:13)
[2023-09-11] MEDS ORDERED: GLUCOPHAGE XR500 M1 PO (10:14)
[2023-09-11] MEDS ORDERED: OMNICEF 300MG300 MG PO (10:15)
[2023-09-12] MEDS ORDERED: GLUCOSE TEST ST1 DEV MC (08:30)
[2023-09-12] MEDS ORDERED: LANCETS MC (08:30)
[2023-09-12] MEDS ORDERED: FREESTYLE PREC1 EAC5 MC (08:30)
== END 2023-09-11 11:29 | disposition home or self-care (01) | DRG 56 ==
PROVIDERS: Internal Medicine; ADMIT Physical Medicine & Rehabilitation Sports Medicine
DX: I69.354 Hemiplegia and hemiparesis following cerebral infarction affecting left non-dominant side (principal); G93.41 Metabolic encephalopathy; J96.01 Acute respiratory failure with hypoxia; I16.1 Hypertensive emergency; J90 Pleural effusion, not elsewhere classified; E87.20 Acidosis, unspecified; N17.9 Acute kidney failure, unspecified; I69.393 Ataxia following cerebral infarction; I69.392 Facial weakness following cerebral infarction; E11.9 Type 2 diabetes mellitus without complications; D64.9 Anemia, unspecified; E78.5 Hyperlipidemia, unspecified; R31.9 Hematuria, unspecified; K59.00 Constipation, unspecified; N40.1 Benign prostatic hyperplasia with lower urinary tract symptoms; R33.8 Other retention of urine; I11.0 Hypertensive heart disease with heart failure; I50.9 Heart failure, unspecified; I48.91 Unspecified atrial fibrillation; I45.10 Unspecified right bundle-branch block; Z95.818 Presence of other cardiac implants and grafts; Z74.09 Other reduced mobility
CPT/HCPCS: J0696; J1815; J2405; J7030

== ENCOUNTER 2023-11-09 12:28 | Inpatient (IN) | payer MEDICARE, BC ==
[~2023-11-09] VITALS: Ht 170.2 cm; Wt 103.6 kg
[2023-11-09] VITALS (10 sets, daily range): BP systolic 84–114; BP diastolic 48–73; PULSE 30–62; TEMP 96.7–98.7
[~2023-11-09 12:28] MED LIST changes: +APRESOLINE 25MG25 MG PO; +BETAPACE 80MG80 MG PO; +COLACE 100100 MG/CAP PO; +ELIQUIS 5MG PO; +FREESTYLE PREC1 EAC5 MC; +GLUCOSE TEST ST1 DEV MC; +HYDROCORTISON28.4 GM TP; +INSULIN HUMA100 U/ML SQ; +IPRATROPIUM BROM3 M1 IH; +K-DUR20 MEQ PO; +LANCETS MC; +LEVSIN0.125 M1 PO; +LIPITOR 40MG TA40 MG PO; +MIRALAX PA17 GM/Dose PO; +OMNICEF 300MG300 MG PO; +PLAVIX 75MG TAB75 MG PO; +RITE AID GLUCOSE4 G1 PO; +ZOFRAN 4MG T4 MG/TAB PO; +[UNRECOGNIZED DRUG - CODE] IRP
[2023-11-09] MEDS ORDERED: ceFAZolin 2 G in Water For Injection,Sterile 20 ML IV SCH (12:45)
[2023-11-09] MEDS ORDERED: 1/2 NS 1,000 ML IV SCH (12:45)
[2023-11-09] MEDS ORDERED: NS FLUSH ICA (13:00)
[2023-11-09 13:36] LABS: BASO # 0.1 K/mm3 (0.0-0.2); BASO % 0.4 % (0.0-2.0); EOS % 0.3 % (0.0-4.0); GRAN # 8.9 K/mm3 (1.4-6.5); GRAN % 72.3 % (42.2-75.2); HEMATOCRIT 30.8 % (42.0-52.0); HEMOGLOBIN 9.6 g/dl (13.5-18.0); LYMPH # 2.4 K/mm3 (1.2-3.4); LYMPH % 19.8 % (20.0-51.0); MEAN CELL VOLUME 98 fl (80.0-100.0); MEAN CORPUSCULAR HEMOGLOBIN 30 pg (27-31); MEAN CORPUSCULAR HGB CONC 31 g/dl (33.0-37.0); MEAN PLATELET VOLUME 9.4 fl (7.4-10.4); MONO # 0.8 K/mm3 (0.1-0.6); MONO % 6.4 % (1.7-9.3); PLATELET COUNT 537 K/mm3 (130-400); RED BLOOD COUNT 3.16 M/mm3 (4.20-5.60); REDCELL DISTRIBUTION WIDTH-CV 15.9 % (11.5-14.5)
[2023-11-09] MEDS ORDERED: PROTONIX 40MG T40 MG PO (13:39)
[2023-11-09 13:40] LABS: INR 1.2 (0.8-3.0); PROTHROMBIN TIME 12.8 SECONDS (9.7-12.8)
[2023-11-09] MEDS ORDERED: OZEMPIC0.25 MG/02 SQ (13:40)
[2023-11-09] MEDS ORDERED: PROAIR HFA0.09 MG/AC IH (13:41)
[2023-11-09] MEDS ORDERED: CULTURELLE CAP1 EAC1 PO (13:42)
[2023-11-09] MEDS ORDERED: TRESIBA FL100 UNIT/1 SQ (13:43)
[2023-11-09] MEDS ORDERED: LOVENOX 100100 MG/ML SQ (13:44)
[2023-11-09] MEDS ORDERED: CIALIS5 MG PO (13:45)
[2023-11-09] MEDS ORDERED: MELATONIN5 M1 SL (13:45)
[2023-11-09 13:54] LABS: CALCIUM 8.2 mg/dL (8.4-10.2); CREATININE, serum 4.07 mg/dL (0.72-1.25); POTASSIUM 5.3 mEq/L (3.5-4.5)
[2023-11-09] MEDS ORDERED: NS 1,000 ML IV.SOLN. IR SCH (14:40)
[2023-11-09] MEDS ORDERED: Topical Skin Adhesive 1 EACH (1 ML) TOP ONE (15:05)
[2023-11-09] MEDS ORDERED: fentaNYL 50 MCG/ML 2 ML VIAL IV SCH (15:22)
[2023-11-09] MEDS ORDERED: Midazolam 2 MG/2 ML VIAL IV SCH (15:22)
[2023-11-09] MEDS ORDERED: Bisacodyl 5 MG TAB PO PRN (16:00)
[2023-11-09] MEDS ORDERED: Acetaminophen 500 MG TAB PO PRN (16:30)
[2023-11-09] MEDS ORDERED: Magnes Hydrox (MOM) 80 MG/ML 30 ML CUP PO PRN (16:30)
[2023-11-09] MEDS ORDERED: Dextrose (Glucose) 15 GM (4 x 3.75 GM) Chewable TABLET PACK PO PRN (16:30)
[2023-11-09] MEDS ORDERED: Glucagon 1 MG VIAL IM PRN (16:30)
[2023-11-09] MEDS ORDERED: Ondansetron 4 MG/2 ML VIAL IV PRN (16:30)
[2023-11-09] MEDS ORDERED: Albuterol 0.083% Neb Soln 2.5 MG/3 ML UD IH PRN (16:30)
[2023-11-09] MEDS ORDERED: Dextrose 50% Water 25 GM/50 ML SYRINGE IV PRN (16:30)
[2023-11-09] MEDS ORDERED: Insulin Lispro (HumaLOG) SQ SCH (17:00)
[2023-11-09] MEDS ORDERED: hydrALAZINE 25 MG TAB PO SCH (17:00)
[2023-11-09] MEDS ORDERED: NS FLUSH ICA SCH (21:00)
[2023-11-09] MEDS ORDERED: Atorvastatin 40 MG TAB PO SCH (21:00)
[2023-11-09] MEDS ORDERED: Docusate Sodium 100 MG CAP PO SCH (21:00)
[2023-11-09] MEDS ORDERED: Apixaban 5 MG TABLET PO SCH (21:00)
[2023-11-09] MEDS ORDERED: Melatonin 3 MG TAB PO SCH (21:00)
[2023-11-10 00:17] VITALS: BP 94/60; PULSE 52; TEMP 98.7
[2023-11-10] MEDS ORDERED: ceFAZolin 2 G in Water For Injection,Sterile 20 ML IV SCH (02:30)
[2023-11-10 03:39] VITALS: BP 103/55; PULSE 60; TEMP 97.4
[2023-11-10 06:54] LABS: BASO % 0.2 % (0.0-2.0); EOS % 0.1 % (0.0-4.0); GRAN # 10.5 K/mm3 (1.4-6.5); GRAN % 75.7 % (42.2-75.2); LYMPH # 2.5 K/mm3 (1.2-3.4); MEAN CELL VOLUME 98 fl (80.0-100.0); MEAN CORPUSCULAR HGB CONC 31 g/dl (33.0-37.0); MEAN PLATELET VOLUME 9.7 fl (7.4-10.4); MONO # 0.8 K/mm3 (0.1-0.6); MONO % 5.4 % (1.7-9.3); PLATELET COUNT 485 K/mm3 (130-400); REDCELL DISTRIBUTION WIDTH-CV 15.9 % (11.5-14.5)
[2023-11-10 06:57] LABS: HEMATOCRIT 27.4 % (42.0-52.0); HEMOGLOBIN 8.4 g/dl (13.5-18.0); MEAN CORPUSCULAR HEMOGLOBIN 30 pg (27-31)
[2023-11-10 07:02] VITALS: BP 106/67; PULSE 59; TEMP 97.9
[2023-11-10 07:15] LABS: ALBUMIN 2.2 g/dL (3.4-4.8); BILIRUBIN,TOTAL 0.2 mg/dL (0.2-1.2); CALCIUM 7.6 mg/dL (8.4-10.2); CREATININE, serum 3.76 mg/dL (0.72-1.25); TOTAL PROTEIN 5.2 g/dl (6.2-8.1)
[2023-11-10] MEDS ORDERED: Polyethylene Glycol 3350 17 GM PDS PO SCH (09:00)
[2023-11-10] MEDS ORDERED: Empagliflozin 25 MG TAB PO SCH (09:00)
[2023-11-10] MEDS ORDERED: Clopidogrel 75 MG TAB PO SCH (09:00)
[2023-11-10] MEDS ORDERED: Insulin Glargine-ygfn (Lantus) SQ SCH (09:00)
[2023-11-10] MEDS ORDERED: NS 500 ML IV ONE (09:45)
[2023-11-10] MEDS ORDERED: Acetaminophen 325 MG TAB PO PRN (09:45)
[2023-11-10 11:25] VITALS: BP 131/75; PULSE 79; TEMP 97.7
[2023-11-10 14:37] VITALS: BP 111/71; PULSE 79
[2023-11-10] MEDS ORDERED: NS 1,000 ML IV SCH (14:45)
[2023-11-10] MEDS ORDERED: Temazepam 15 MG CAP PO PRN (14:45)
[2023-11-10 19:15] VITALS: BP 119/68; PULSE 77; TEMP 98.1
[2023-11-10] MEDS ORDERED: Apixaban 2.5 MG TABLET PO SCH (21:00)
[2023-11-10] MEDS ORDERED: Cephalexin 500 MG CAP PO SCH (21:00)
[2023-11-11] MEDS ORDERED: Cephalexin 500 MG CAP PO SCH
[2023-11-11 00:09] VITALS: BP 105/70; PULSE 80; TEMP 97.4
[2023-11-11 04:03] VITALS: BP 127/74; PULSE 79; TEMP 97.4
[2023-11-11 07:19] VITALS: BP 136/70; PULSE 80; TEMP 97.7
[2023-11-11 09:16] LABS: BASO % 0.3 % (0.0-2.0); EOS % 0.4 % (0.0-4.0); GRAN # 8.4 K/mm3 (1.4-6.5); GRAN % 75.4 % (42.2-75.2); LYMPH # 1.8 K/mm3 (1.2-3.4); LYMPH % 15.9 % (20.0-51.0); MEAN CELL VOLUME 96 fl (80.0-100.0); MEAN CORPUSCULAR HGB CONC 31 g/dl (33.0-37.0); MEAN PLATELET VOLUME 9.3 fl (7.4-10.4); MONO # 0.8 K/mm3 (0.1-0.6); MONO % 7.2 % (1.7-9.3); PLATELET COUNT 434 K/mm3 (130-400); RED BLOOD COUNT 2.87 M/mm3 (4.20-5.60); REDCELL DISTRIBUTION WIDTH-CV 16.1 % (11.5-14.5)
[2023-11-11 09:20] LABS: HEMATOCRIT 27.5 % (42.0-52.0); HEMOGLOBIN 8.5 g/dl (13.5-18.0); MEAN CORPUSCULAR HEMOGLOBIN 30 pg (27-31)
[2023-11-11 09:32] LABS: CALCIUM 8.2 mg/dL (8.4-10.2); CREATININE, serum 3.24 mg/dL (0.72-1.25); POTASSIUM 4.7 mEq/L (3.5-4.5)
[2023-11-11 11:28] VITALS: BP 122/77; PULSE 79; TEMP 97.4
[2023-11-11] MEDS ORDERED: ELIQUIS 2.5 PO (15:00)
[2023-11-11] MEDS ORDERED: CEPHALEXIN500 M1 PO (15:00)
[2023-11-11 15:01] VITALS: BP 101/66; PULSE 76; TEMP 97.6
== END 2023-11-11 16:22 | disposition home or self-care (01) | DRG 244 ==
LOC: COL.CAR 12:28 → MEDICAL 16:28 → COL.CAR 11-10 16:05 → MEDICAL 11-10 16:05
PROVIDERS: Internal Medicine Cardiovascular Disease; ADMIT Internal Medicine Cardiovascular Disease
PROC: 0JH606Z Insertion of Pacemaker, Dual Chamber into Chest Subcutaneous Tissue and Fascia, Open Approach (ICD-10-PCS; principal; 2023-11-09)
PROC: 02H63JZ Insertion of Pacemaker Lead into Right Atrium, Percutaneous Approach (ICD-10-PCS; 2023-11-09)
PROC: 02HK3JZ Insertion of Pacemaker Lead into Right Ventricle, Percutaneous Approach (ICD-10-PCS; 2023-11-09)
PROC: 0JPT02Z Removal of Monitoring Device from Trunk Subcutaneous Tissue and Fascia, Open Approach (ICD-10-PCS; 2023-11-09)
DX: I44.1 Atrioventricular block, second degree (principal); L89.150 Pressure ulcer of sacral region, unstageable; I48.91 Unspecified atrial fibrillation; I10 Essential (primary) hypertension; E78.5 Hyperlipidemia, unspecified; I49.5 Sick sinus syndrome; I08.3 Combined rheumatic disorders of mitral, aortic and tricuspid valves; Z90.89 Acquired absence of other organs; Z79.01 Long term (current) use of anticoagulants; Z86.73 Personal history of transient ischemic attack (TIA), and cerebral infarction without residual deficits; Z79.899 Other long term (current) drug therapy; Z79.02 Long term (current) use of antithrombotics/antiplatelets; Z79.4 Long term (current) use of insulin; Z23 Encounter for immunization
CPT/HCPCS: OP; A9270; C1769; C1785; C1894; C1898; J0665-JZ; J0690; J1815; J2250; J3010; J7030; J7040

== ENCOUNTER 2023-11-12 12:15 | Inpatient (IN) | payer MEDICARE, BC ==
[~2023-11-12] VITALS: Ht 177.8 cm; Wt 103.1 kg
[~2023-11-12 12:15] MED LIST changes: +CEPHALEXIN500 M1 PO; +CIALIS5 MG PO; +CULTURELLE CAP1 EAC1 PO; +ELIQUIS 2.5 PO; +LOVENOX 100100 MG/ML SQ; +MELATONIN5 M1 PO; +PROAIR HFA0.09 MG/AC IH; +PROTONIX 40MG T40 MG PO; +TRESIBA FL100 UNIT/1 SQ
[2023-11-12 13:37] LABS: BASO % 0.3 % (0.0-2.0); EOS % 0.3 % (0.0-4.0); GRAN # 7.8 K/mm3 (1.4-6.5); LYMPH # 2.2 K/mm3 (1.2-3.4); LYMPH % 20.6 % (20.0-51.0); MEAN CELL VOLUME 97 fl (80.0-100.0); MEAN CORPUSCULAR HGB CONC 31 g/dl (33.0-37.0); MEAN PLATELET VOLUME 9.6 fl (7.4-10.4); MONO # 0.5 K/mm3 (0.1-0.6); PLATELET COUNT 402 K/mm3 (130-400); RED BLOOD COUNT 2.62 M/mm3 (4.20-5.60); REDCELL DISTRIBUTION WIDTH-CV 16.2 % (11.5-14.5)
[2023-11-12 13:38] LABS: HEMATOCRIT 25.5 % (42.0-52.0); HEMOGLOBIN 7.8 g/dl (13.5-18.0); MEAN CORPUSCULAR HEMOGLOBIN 30 pg (27-31)
[2023-11-12 13:51] LABS: ALBUMIN 2.1 g/dL (3.4-4.8); ALKALINE PHOSPHATASE 64 U/L (40-150); ANION GAP 9 mmol/L (7-16); AST,SGOT 10 U/L (5-34); BILIRUBIN,TOTAL 0.2 mg/dL (0.2-1.2); BLOOD UREA NITROGEN 66 mg/dL (8-26); CALCIUM 8.2 mg/dL (8.4-10.2); CHLORIDE 108 mEq/L (98-107); CREATININE, serum 2.63 mg/dL (0.72-1.25); GLUCOSE 243 mg/dL (70-99); POTASSIUM 4.7 mEq/L (3.5-4.5); SODIUM 135 mEq/L (136-145); TOTAL PROTEIN 4.9 g/dl (6.2-8.1)
[2023-11-12 13:52] LABS: ALANINE AMINOTRANSFERASE < 6 U/L (0-55)
[2023-11-12 14:37] LABS: COLLECTION METHOD CLEAN CATCH
[2023-11-12 14:47] LABS: URINE APPEARANCE CLOUDY (CLEAR/HAZY); URINE BLOOD 1+ (NEGATIVE); URINE COLOR YELLOW (YELLOW); URINE GLUCOSE 3+ (NEGATIVE); URINE KETONE NEGATIVE (NEGATIVE); URINE NITRATE NEGATIVE (NEGATIVE); URINE PROTEIN(semi-quant) NEGATIVE (NEGATIVE); URINE UROBILINOGEN 0.2 E.U/dL (0.2-1.0)
--- NOTE | 2023-11-12 15:31 | NUR ---
Water Taxi Ferry Operator consulted in the ED for patient who was discharged yesterday and presented today to the ED via EMS. Patient was admitted to this hospital on 11/09/23 as an outpatient for pacemaker placement. Patient was upgraded to inpatient on 11/10/23 and discharged yesterday, 11/11/[facility] with [facility]. MARIA GUADALUPE was contacted by Gita Carroll RN who advised patient had low blood pressure during their visit today, swelling, and it took three people to transfer him to the [facility] when EMS arrived. MARIA GUADALUPE arrived in ED and spoke with Sheridan ED Office Technology Professor who advised patient was not going to be admitted, however was not likely safe to return home. MARIA GUADALUPE met with patient's daughter, Mica and , Eloisa in the ED waiting room to discuss options. MARIA GUADALUPE led the conversation with the update that patient would not be admitted and immediately this was not accepted by family. Mica stated she will be admitted and she will not accept him being released. Mica advised she has known of people being released from this hospital and then later dying. Mica stated this hospital would be liable for anything that happens to patient if he were released and that he should not have been released yesterday. Mica stated she felt Dr. Garcia made several "bad" and "egregious" mistakes bordering on malpractice. Mica stated if patient was not admitted she "would call who she needed to call". Mica asked to speak with Dr. Alvarado and Dr. Son about being admitted. MARIA GUADALUPE attempted to redirect the conversation to possible SNF placement and Mica stated he would not go to SNF from here and needed to be admitted for three days. Mica was most interested in IPR at this facility and preferred he go there. Mica again stated patient did not need SNF, he needed to be admitted and treated for the concerns he was brought in for. Mica requested MARIA GUADALUPE and MARIA GUADALUPE studentBridget meet with patient in his room to observe him. Mica repeatedly asked MARIA GUADALUPE and Bridget what they would do if this was their dad. MARIA GUADALUPE attempted to redirect the conversation and Mica stated anyone who looks at the patient would be able to determine he cannot be released. MARIA GUADALUPE asked patient how he was doing and he stated "that is to be determined". Patient had his eyes open and made eye contact with MARIA GUADALUPE during this interaction. Mica stated earlier patient was unable to keep his eyes open. SW provided the above update to Manager Transit and Crystal.
--- NOTE | 2023-11-12 17:39 | NUR ---
Cathode Builder met with patient's family along with Dr. Son, Richa Damon, and Sheridan Rodriguez. Family is open to SNF placement. SW explained to family that it would be private pay and they were agreeable to the estimated cost of $300-$400 per day. MARIA GUADALUPE provided Medicare.gov list of SNF options and first preference is [facility]. MARIA GUADALUPE contacted Verenice at [facility] and faxed referral. Verenice advised they likely would not have a bed until next week. MARIA GUADALUPE contacted Dashawn at [facility] as they are sometimes able to accept late admissions. Dashawn requested clinicals which MARIA GUADALUPE provided. After review, Dashawn advised they would not be able to admit tonight, however were willing to review updates tomorrow and possibly admit. Dashawn stated they were concerned with patient's edema and also noted concerns with family's behavior during ED visit which are documented in nursing notes. MARIA GUADALUPE updated leadership team and then update was given to the family at patient's bedside. While waiting for response from Dashawn at [facility], MARIA GUADALUPE contacted Jefferson at [facility] to inquire about private duty services in the home and if that is something that could be set up over the weekend. Jefferson advised likely not as the schedule for the weekend is already set and office staff have left for the day. MARIA GUADALUPE did this follow up as Dr. Son advised family inquired about taking patient home with private duty services.
[2023-11-12] MEDS ORDERED: Docusate Sodium 100 MG CAP PO PRN (17:45)
[2023-11-12] MEDS ORDERED: Polyethylene Glycol 3350 17 GM PDS PO PRN (17:45)
[2023-11-12] MEDS ORDERED: Acetaminophen 325 MG TAB PO PRN (17:45)
[2023-11-12] MEDS ORDERED: Albuterol 0.042% Neb Soln 1.25 MG/3 ML UD IH PRN (18:00)
[2023-11-12] MEDS ORDERED: Dextrose 50% Water 25 GM/50 ML SYRINGE IV PRN (18:30)
[2023-11-12] MEDS ORDERED: Dextrose (Glucose) 15 GM (4 x 3.75 GM) Chewable TABLET PACK PO PRN (18:30)
[2023-11-12] MEDS ORDERED: Glucagon 1 MG VIAL IM PRN (18:30)
[2023-11-12 20:00] VITALS: BP 103/62; PULSE 80; TEMP 97.4
[2023-11-12 20:30] VITALS: BP_SYST 103
[2023-11-12] MEDS ORDERED: Atorvastatin 40 MG TAB PO SCH (21:00)
[2023-11-12] MEDS ORDERED: Cephalexin 500 MG CAP PO SCH (21:00)
[2023-11-12] MEDS ORDERED: Apixaban 2.5 MG TABLET PO SCH (21:00)
[2023-11-12] MEDS ORDERED: Insulin Lispro (HumaLOG) SQ SCH (21:00)
[2023-11-12] MEDS ORDERED: Melatonin 3 MG TAB PO SCH (21:00)
[2023-11-13] VITALS (21 sets, daily range): BP systolic 99–137; BP diastolic 63–82; PULSE 79–80; TEMP 94.8–98.2
[2023-11-13 06:38] LABS: BASO % 0.3 % (0.0-2.0); EOS # 0.1 K/mm3 (0.0-0.7); GRAN # 5.9 K/mm3 (1.4-6.5); GRAN % 64.2 % (42.2-75.2); LYMPH # 2.6 K/mm3 (1.2-3.4); LYMPH % 27.6 % (20.0-51.0); MEAN CELL VOLUME 95 fl (80.0-100.0); MEAN CORPUSCULAR HGB CONC 31 g/dl (33.0-37.0); MEAN PLATELET VOLUME 9.2 fl (7.4-10.4); MONO # 0.6 K/mm3 (0.1-0.6); MONO % 6.3 % (1.7-9.3); PLATELET COUNT 373 K/mm3 (130-400); RED BLOOD COUNT 2.48 M/mm3 (4.20-5.60); REDCELL DISTRIBUTION WIDTH-CV 16.4 % (11.5-14.5)
[2023-11-13 06:39] LABS: HEMATOCRIT 23.5 % (42.0-52.0); HEMOGLOBIN 7.3 g/dl (13.5-18.0); MEAN CORPUSCULAR HEMOGLOBIN 29 pg (27-31)
[2023-11-13 06:58] LABS: CALCIUM 8.2 mg/dL (8.4-10.2); CREATININE, serum 2.37 mg/dL (0.72-1.25); POTASSIUM 4.2 mEq/L (3.5-4.5)
[2023-11-13] MEDS ORDERED: Empagliflozin 25 MG TAB PO SCH (09:00)
[2023-11-13] MEDS ORDERED: Insulin Glargine-ygfn (Lantus) SQ SCH (09:00)
[2023-11-13] MEDS ORDERED: Clopidogrel 75 MG TAB PO SCH (09:00)
--- NOTE | 2023-11-13 09:08 | NUR ---
MARIA GUADALUPE reviewed chart. MARIA GUADALUPE called Dashawn at [facility] to inquire about admission. Dashawn stated he needed updated clinicals. Labs, vitals and H&P sent via secure email. Awaiting decision on admission and attending to round. Discharge plan: SNF
--- NOTE | 2023-11-13 09:30 | NUR ---
Patient sitting up in bed. Working on breakfast tray. Daughter at bedside. rounding and plan of care reviewed. Am medications given. questions answered. Will monitor.
[2023-11-13 09:44] LABS: RETIC # 0.08 M/mm3 (0.02-0.16); RETIC % 3.3 % (0.5-3.52)
--- NOTE | 2023-11-13 10:00 | NUR ---
Blood bank called and verified they are aware of orders for unit of blood.
--- NOTE | 2023-11-13 11:44 | NUR ---
AMRIA GUADALUPE notifed by attending Dr. Patel that patient is now inpatient status and getting blood transfusion. Patient will not discharge to [facility] today. MARIA GUADALUPE called Dashawn at [facility] to update on patient status. Discharge plan: SNF
[2023-11-13] MEDS ORDERED: Furosemide 40 MG/4 ML VIAL IV ONE (12:00)
--- NOTE | 2023-11-13 13:00 | NUR ---
Unit of blood ready. Spoke with patient and about blood transfusion and signs and symptoms of reaction as well and policy and procedure. Patient reports he has never had a unit of blood. Consent obtained. Vss.
--- NOTE | 2023-11-13 13:20 | NUR ---
Unit of blood verified with Callie Reyes. Policy followed. Unit of blood infusing in 20G IV to L.hand. Started at 60ml/hr. Vss. Will remain at bedside.
--- NOTE | 2023-11-13 13:45 | NUR ---
Data: Precision Lens Polisher attempted spiritual care visit three times. Physical Therapy; personal care; and RN with Patient prevented a visit each time. Assessment: None at this time. Plan of Care: Chaplains will remain available as needed/requested while Patient is admitted to this hospital.
--- NOTE | 2023-11-13 13:55 | NUR ---
Patient assisted to void using urinal. Sample collected per orders and sent to lab. Patient incontinent of urine. Pericares provided. Patient continues to tolerate blood transfusion without reaction. Vss. Will monitor.
--- NOTE | 2023-11-13 14:34 | NUR ---
Patient resting in bed. Tolerating blood transfusion without signs or symptoms of transfusion reaction. Vss on room air. at bedside.
--- NOTE | 2023-11-13 15:50 | NUR ---
Patient assisted to use urinal and void, pericares provided for incontinence cares. Hood hose knee high reappied to BLE, thigh high were to tight on patient. Patient continues to tolerate blood transfusion.
--- NOTE | 2023-11-13 18:33 | NUR ---
Patient resting in bed. He did well with dinner. His has gone home for the evening. Blood transfusion was completed without signs or syumptoms of reaction. INT. Teds ble. Incontinence cares as needed. Report off to nightnurse
--- NOTE | 2023-11-13 20:00 | NUR ---
UPON SHIFT ASSESSMENT, NANCY WAS IN BED AND AXO X4 BUT SLOW TO PROCESS. RT ARM IN SLING WITH GAUZE BANDAGE OVER PACEMAKER SITE. VS ARE STABLE. BG WAS 231 REQUIRING 6 UNITS INSULIN. 1 UNIT PRBC WAS TRANSFUSED DURING DAY SHIFT. PATIENT SHOWING NO SIGNS OF TRANSFUSION COMPLICATIONS.
--- NOTE | 2023-11-13 21:30 | NUR ---
CALL PLACED TO HOSPITALISTCASPER. PATIENT HEMOGLOBIN 7.6 AND NO TELE PLACED. TORB TO HOLD ELIQUIS AND IMPLEMENT TELE PROTOCOL GIVEN.
[2023-11-14] VITALS (12 sets, daily range): BP systolic 113–155; BP diastolic 70–81; PULSE 77–82; TEMP 97.4–98.4
--- NOTE | 2023-11-14 01:17 | NUR ---
ROUNDED ON PATIENT. SLEEPING SUPINE. NO SIGNS OF DISTRESS. VS ARE CURRENTLY WNL. TELE IS NS PACED.
[2023-11-14 06:14] LABS: BASO % 0.4 % (0.0-2.0); EOS # 0.1 K/mm3 (0.0-0.7); EOS % 1.1 % (0.0-4.0); GRAN # 6.1 K/mm3 (1.4-6.5); GRAN % 67.5 % (42.2-75.2); LYMPH # 2.2 K/mm3 (1.2-3.4); LYMPH % 23.9 % (20.0-51.0); MEAN CELL VOLUME 95 fl (80.0-100.0); MEAN CORPUSCULAR HGB CONC 32 g/dl (33.0-37.0); MEAN PLATELET VOLUME 9.1 fl (7.4-10.4); MONO # 0.6 K/mm3 (0.1-0.6); MONO % 6.4 % (1.7-9.3); PLATELET COUNT 345 K/mm3 (130-400); RED BLOOD COUNT 2.96 M/mm3 (4.20-5.60); REDCELL DISTRIBUTION WIDTH-CV 16.4 % (11.5-14.5)
[2023-11-14 06:16] LABS: HEMATOCRIT 28.1 % (42.0-52.0); HEMOGLOBIN 8.9 g/dl (13.5-18.0); MEAN CORPUSCULAR HEMOGLOBIN 30 pg (27-31)
[2023-11-14 06:32] LABS: CALCIUM 8.2 mg/dL (8.4-10.2); CREATININE, serum 2.31 mg/dL (0.72-1.25); POTASSIUM 4.1 mEq/L (3.5-4.5)
--- NOTE | 2023-11-14 06:35 | NUR ---
Pt laying in bed. No needs at this time. Call light in reach and bed alarm on.
--- NOTE | 2023-11-14 09:05 | NUR ---
Pt laying in bed. A&Ox4. VSS. S1S2. Clear lungs on RA. ABD round, soft, non-tender with audible bowel sounds. Palpable pulses in all extremities (L pedal pulse difficult to palpate due to edema). +2 edema in BLE. +1 edema in upper extremities. MIKE hose placed on legs. L arm in sling. INT in L hand patent, no issues. L chest - CDI, gauze and tape. Daughter at bedside. AM meds administered. L sacrum is red, unblanchable - mepilex in place. No further needs at this time. Call light in reach and bed alarm on.
[2023-11-14] MEDS ORDERED: Furosemide 40 MG/4 ML VIAL IV SCH (10:15)
[2023-11-14] MEDS ORDERED: Folic Acid 1 MG TAB PO SCH (11:45)
--- NOTE | 2023-11-14 12:36 | NUR ---
MARIA GUADALUPE sent clinical updates to [facility] and [facility] for review. MARIA GUADALUPE called Lakeshia with [facility] to make official referral per daughter's request. Discharge plan: SNF
--- NOTE | 2023-11-14 13:32 | NUR ---
MARIA GUADALUPE recieved call from Emmy at [facility] to discuss clinical updates. Emmy states they can accept patient for admission tomorrow or Wednesday. Patient pending further tests scheduled for tomorrow. MARIA GUADALUPE will send updates tomorrow for review. Discharge plan: SNF
--- NOTE | 2023-11-14 15:16 | NUR ---
Pt incontinent in chair. Cleaned Pt and applied new depends. Changed TEDs and socks. Call light in reach and bed alarm on.
--- NOTE | 2023-11-14 21:46 | NUR ---
Patient assessed at this time, see shift assessment, A/O, denies pain or discomfort, with INT infusing well on left hand, on room air, with left arm sling on, MIKE's on, with heel protectors on and overlay mattress, mepilex to bottom CDI, noted incontinence of urine at this time, pericare provided, pad change and repositioned, will continue to reposition patient regularly, fluid restriction implemented, NPO postmidnight instructed for the planned upper GI endoscopy tomorrow, denies further needs, call light and personal items within reach, will continue to monitor.
[2023-11-15] VITALS (18 sets, daily range): BP systolic 92–155; BP diastolic 48–83; PULSE 77–80; TEMP 97.9–98.8
--- NOTE | 2023-11-15 02:52 | NUR ---
Repositioned patient to the left side, changed mepilex to bottom at this time, will continue to monitor.
[2023-11-15 06:22] LABS: HEMATOCRIT 29.5 % (42.0-52.0); HEMOGLOBIN 9.4 g/dl (13.5-18.0)
--- NOTE | 2023-11-15 06:33 | NUR ---
Patient incontinent of urine at this time, pericare provided, repositioned patient to his right side, NPO maintained.
[2023-11-15 06:36] LABS: CALCIUM 8.4 mg/dL (8.4-10.2); CREATININE, serum 2.5 mg/dL (0.72-1.25); POTASSIUM 3.9 mEq/L (3.5-4.5)
[2023-11-15] MEDS ORDERED: Cyanocobalamin (Vit B-12) 1,000 MCG TAB PO SCH (09:00)
[2023-11-15] MEDS ORDERED: LR 1,000 ML IV SCH ×2 (10:15→15:45)
[2023-11-15] MEDS ORDERED: Lidocaine PF 2% (20 MG/ML) 5 ML VIAL ONE (11:58)
[2023-11-15] MEDS ORDERED: Ondansetron 4 MG/2 ML VIAL IV PRN (12:45)
[2023-11-15] MEDS ORDERED: Ondansetron 4 MG/2 ML VIAL IV SCH (16:45)
[2023-11-15] MEDS ORDERED: PEG3350/Sod Sulf,Bicarb,Cl/KCl Oral Soln 4,000 ML Bottle PO SCH (17:30)
--- NOTE | 2023-11-15 20:00 | NUR ---
Shift assessment complete. VSS. Patient resting in bed drinking his bowel prep as ordered. MIKE hose in place bilaterally. All night meds given as ordered. patient is to be NPO at midnight for proceedure in AM. Patient has no request at this time. bed alarm on and call light in reach.
--- NOTE | 2023-11-15 20:16 | NUR ---
Patient resting in bed. Family home for the evening, they were at bedside thoughout the day. Patient has been provided with incontinece cares throughout the day. Bowel prep started this evening, patient not excited about getting a colonoscopy. He rested well in the afternoon post EGD, in preperation of being up tonight with bowel prep. Vss on room air. Teds removed and replaced today. Edema noted to BLE & BUE. Heels floated. Left arm remains in sling post pacemaker. Pacermaker dressing intact. Bedside report to Nicol to resume cares
[2023-11-16] VITALS (8 sets, daily range): BP systolic 119–138; BP diastolic 74–83; PULSE 79–80; TEMP 97.7–98.3
--- NOTE | 2023-11-16 05:35 | NUR ---
PATIENT SLEPT THROUGHT THE NIGHT WELL, THIS NURSE AND CAREER PORTALS TEACHER DID CHECK AND CHANGES Q2 HRS THROUGH THE NIGHT. PATIENT DID DRINK ALMOST HALF BOWEL PREP BEFORE MIDNIGHT AND WAS NPO AT MIDNIGHT ORDERED. PATIENT HAS HAD NO BOWEL MOVEMENT AT THIS POINT.
--- NOTE | 2023-11-16 06:45 | NUR ---
Pt sleeping in room. Call light in reach and bed alarm on. Pt had 1/2 of bowel prep last night prior to midnight. Per manufacturing shift supervisor, no BM. Remaining bowel prep in carton.
[2023-11-16 07:08] LABS: HEMATOCRIT 30.4 % (42.0-52.0); HEMOGLOBIN 9.5 g/dl (13.5-18.0)
[2023-11-16 07:48] LABS: CALCIUM 8.5 mg/dL (8.4-10.2); CREATININE, serum 2.36 mg/dL (0.72-1.25); POTASSIUM 4.1 mEq/L (3.5-4.5)
--- NOTE | 2023-11-16 08:09 | NUR ---
Pt laying in bed. A&Ox4. VSS. S1S2. Clearlungs on RA. ABD round, soft, non-tender with audible bowel sounds. Palpable pulses in all extremities with 4/5 strength in BUE and 3/5 in BLE. +2 edema in BLE. TEDs on bilaterally - cutting into skin below knee - took off to give legs a break. Non-pitting edema in BUE. L chest pacemaker site is CDI with gauze. Pt on waffle air mattress overlay. S1 pressure injury on sacrum - mepilex in place. Q2 turning. Pt currently on Left side. IV in L hand is patent, INT. Pt aware of colonoscopy for this AM. Pt stated he "just wants to get this over with and go home. I feel like I have been here forever." Per anesthesia hold AM meds except Jardiance, Sotalol, Long-acting insulin, and Keflex. No further needs. Call light in reach and bed alarm on.
--- NOTE | 2023-11-16 10:00 | NUR ---
Pt had small episode of incontinence. Cleaned Pt. Turned Pt to look at sacral area - S2 pressure injury - 3 cm whtie, ulcer surrounded by red skin. Applied barrier cream and Pt winced at touch. Tuned Pt onto Right side. Mepilex in place. Call light in reach and bed alarm on.
[2023-11-16] MEDS ORDERED: FOLIC ACID 11 MG/TA1 PO (12:23)
[2023-11-16] MEDS ORDERED: B-121000 MCG PO (12:24)
[2023-11-16] MEDS ORDERED: TYLENOL 325MG325 MG PO (12:25)
[2023-11-16] MEDS ORDERED: CEPHALEXIN500 M1 PO (12:30)
[2023-11-16] MEDS ORDERED: FERROUSAL325 MG PO (12:31)
--- NOTE | 2023-11-16 13:30 | NUR ---
Pt dressed. Tele monitor removed. INT from L hand removed. Pressure bandage placed. Call light in reach and chair alarm on.
--- NOTE | 2023-11-16 13:31 | NUR ---
transition social worker spoke with Dr. Patel who reports pt did not tolerate the bowel prep and will not have the Colonscopy today. MARIA GUADALUPE spoke with MACKENZIE Saxena who reports Dr. Gonzalez will speak with pt shortly and inform of this. MARIA GUADALUPE spoke with [facility] who has no beds this week. [facility] declined. [facility] was still reviewing. MARIA GUADALUPE spoke with daughter and pt and advised on the above. Daughter began to get frustrated and roll her eyes. Pt repeatedly asked what the options were. MARIA GUADALUPE advised she is waiting to hear back from [facility], but the options are SNF vs HH. MARIA GUADALUPE advised there are [facility] and [facility] as the only other [facility] options, otherwise they would have to look further out of town. Daughter declined this. She then said [facility] is not an option based on reviews. She continued to get upset and state, "I don't like the way you are presenting it. You are making it seem like we don't want him at home." During this, MACKENZIE Saxena arrived to be present. MARIA GUADALUPE advised that these are the options and they could discuss other nursing homes as well. She wanted to see what [facility] says and was escalated regarding why [facility] declined. SW offered to have Director Reba speak with her and she did not communicate she wanted this. She went on to state he needs rehab and they cannot care for him at home. MARIA GUADALUPE stated she will come back and discuss options once [facility] gets back to . MARIA GUADALUPE was later informed by RN and Dr. Patel that Dr. Gonzalez talked with pt and family and he can discharge today. MARIA GUADALUPE was informed pt was accepted to [facility]. MARIA GUADALUPE and MACKENZIE Saxena met with pt and his , Anne to discuss. They were agreeable to this and had questions regarding the location and if the staff were "good." They both were agreeable to discharge today and RN answered further questions. MARIA GUADALUPE went over IM from medicare with who signed and verbalized understanding. Copy provided and original in chart. MARIA GUADALUPE emailed discharge orders to Dashawn at [facility] who confirms transport for 2:30pm. MARIA GUADALUPE informed MACKENZIE Saxena of this time. MARIA GUADALUPE called and informed Caregivers [facility], [facility] and [facility] of pt's disposition. Discharge Plan: [facility] SNF at 2:30pm
--- NOTE | 2023-11-16 14:27 | NUR ---
Pt transported to [facility]. Report called to nurse. No further questions at this time. Gave number for nurse to call back if they do have questions or concerns.
== END 2023-11-16 14:31 | DRG 682 ==
LOC: COL.ER 12:15 → SURG 17:49
PROVIDERS: Internal Medicine; Internal Medicine Gastroenterology; Personal Emergency Response Attendant; ADMIT Internal Medicine
PROC: 30233N1 Transfusion of Nonautologous Red Blood Cells into Peripheral Vein, Percutaneous Approach (ICD-10-PCS; 2023-11-15)
PROC: 0DB98ZX Excision of Duodenum, Via Natural or Artificial Opening Endoscopic, Diagnostic (ICD-10-PCS; principal; 2023-11-15 12:00)
DX: N17.9 Acute kidney failure, unspecified (principal); I50.33 Acute on chronic diastolic (congestive) heart failure; I69.319 Unspecified symptoms and signs involving cognitive functions following cerebral infarction; I12.9 Hypertensive chronic kidney disease with stage 1 through stage 4 chronic kidney disease, or unspecified chronic kidney disease; D63.1 Anemia in chronic kidney disease; N18.30 Chronic kidney disease, stage 3 unspecified; I48.91 Unspecified atrial fibrillation; E11.22 Type 2 diabetes mellitus with diabetic chronic kidney disease; L89.90 Pressure ulcer of unspecified site, unspecified stage; K21.9 Gastro-esophageal reflux disease without esophagitis; M19.90 Unspecified osteoarthritis, unspecified site; R00.1 Bradycardia, unspecified; E78.5 Hyperlipidemia, unspecified; R53.81 Other malaise; Z79.4 Long term (current) use of insulin; Z79.01 Long term (current) use of anticoagulants; Z86.73 Personal history of transient ischemic attack (TIA), and cerebral infarction without residual deficits; Z95.0 Presence of cardiac pacemaker; Z87.891 Personal history of nicotine dependence
CPT/HCPCS: A9270; G0378; J1650; J1815; J1940; J2405; J2704; J2765; P9016; Q3014

== ENCOUNTER 2023-11-23 18:49 | Inpatient (IN) | payer MEDICARE, BC ==
[~2023-11-23] VITALS: Ht 180.3 cm; Wt 104.7 kg
--- NOTE | 2023-11-23 10:25 | NUR ---
Pt. arrived via bed w/ refrigerator repair technician. Oriented pt. to room and call light. Assessment performed w/ Berenice MANN. Pt. is oriented to self and place, but otherwise unoriented. He is pleasantly confused. Pt. is on rm. air. Lung sounds are diminished at CHERRI bases upon auscultation. Pt. has quarter-sized open pressure ulcer to coccyx. Pt. has generalized edema, w/ BLE pitting +3. Pt. denies pain or requests at this time. Pt. in bed w/ call light in reach.
[~2023-11-23 18:49] MED LIST changes: +B-121000 MCG PO; +FERROUSAL325 MG PO; +FOLIC ACID 11 MG/TA1 PO; +TYLENOL 325MG325 MG PO
[2023-11-23] MEDS ORDERED: Acetaminophen 325 MG TAB PO ONE (19:00)
[2023-11-23] MEDS ORDERED: NS 1,000 ML IV ONE (19:00)
[2023-11-23 19:24] LABS: BASO % 0.2 % (0.0-2.0); GRAN # 13.7 K/mm3 (1.4-6.5); GRAN % 82.7 % (42.2-75.2); LYMPH # 1.5 K/mm3 (1.2-3.4); LYMPH % 9.2 % (20.0-51.0); MEAN CELL VOLUME 99 fl (80.0-100.0); MEAN CORPUSCULAR HGB CONC 31 g/dl (33.0-37.0); MEAN PLATELET VOLUME 9.4 fl (7.4-10.4); MONO # 1.2 K/mm3 (0.1-0.6); MONO % 7.4 % (1.7-9.3); PLATELET COUNT 347 K/mm3 (130-400); RED BLOOD COUNT 2.31 M/mm3 (4.20-5.60); REDCELL DISTRIBUTION WIDTH-CV 16.3 % (11.5-14.5)
[2023-11-23 19:27] LABS: HEMATOCRIT 22.8 % (42.0-52.0); HEMOGLOBIN 7.1 g/dl (13.5-18.0); MEAN CORPUSCULAR HEMOGLOBIN 31 pg (27-31)
[2023-11-23 19:45] LABS: BILIRUBIN,TOTAL 0.5 mg/dL (0.2-1.2); CALCIUM 8.2 mg/dL (8.4-10.2); CREATININE, serum 2.78 mg/dL (0.72-1.25); POTASSIUM 4.6 mEq/L (3.5-4.5); TOTAL PROTEIN 5.5 g/dl (6.2-8.1)
[2023-11-23 20:09] LABS: COLLECTION METHOD CLEAN CATCH
[2023-11-23 20:17] LABS: URINE APPEARANCE CLOUDY (CLEAR/HAZY); URINE BLOOD 2+ (NEGATIVE); URINE COLOR YELLOW (YELLOW); URINE GLUCOSE 2+ (NEGATIVE); URINE KETONE NEGATIVE (NEGATIVE); URINE NITRATE NEGATIVE (NEGATIVE); URINE PROTEIN(semi-quant) 1+ (NEGATIVE); URINE UROBILINOGEN 0.2 E.U/dL (0.2-1.0)
[2023-11-23 20:32] LABS: BUDDING YEAST PRESENT (NOT PRESENT); SQUAMOUS EPITHELIAL 0-2 /hpf (0-10); URINE BACTERIA MANY /hpf (NONE SEEN); URINE WBC >50 /hpf (0-2)
[2023-11-23] MEDS ORDERED: Acetaminophen 325 MG TAB PO PRN (21:45)
[2023-11-23] MEDS ORDERED: cefTRIAXone 2 G in Water For Injection,Sterile 20 ML IV SCH (22:00)
--- NOTE | 2023-11-23 22:30 | NUR ---
environmental health technologistFederico, called to report critical troponin level of 0.041. MACKENZIE Ng, notified hospitalist, ETHEL Johnson. New orders recieved.
[2023-11-23] MEDS ORDERED: Albumin (Human) 100 ML IV SCH (23:30)
[2023-11-23] MEDS ORDERED: Furosemide 40 MG/4 ML VIAL IV ONE (23:30)
[2023-11-23 23:36] VITALS: BP 93/60; PULSE 83; TEMP 98.1
[2023-11-24] VITALS (12 sets, daily range): BP systolic 93–147; BP diastolic 66–77; PULSE 79–81; TEMP 97.9–99.3
--- NOTE | 2023-11-24 00:30 | NUR ---
Administered scheduled meds per JUL. Inserted 16 fr coude catheter per orders. Catheter to dependent drainage. Draining thick, cloudy, blood-tinged, yellow urine. Emptied 700 mL urine. Catheter secured to L leg. PT. tolerated procedure well. Applied mepilex dressing to open area on coccyx and placed pt. on R side in bed. Call light in reach.
--- NOTE | 2023-11-24 01:45 | NUR ---
wind energy technician called for lead check. Pt. was off head sawyer. PCT, Sabas, checked leads. Pt is returned to head sawyer.
[2023-11-24] MEDS ORDERED: LASIX 20MG TABL20 MG PO (01:49)
[2023-11-24] MEDS ORDERED: MIRALAX PA17 GM/Dose PO (01:52)
[2023-11-24] MEDS ORDERED: Polyethylene Glycol 3350 17 GM PDS PO PRN (04:00)
[2023-11-24] MEDS ORDERED: Insulin Glargine-ygfn (Lantus) SQ SCH (04:02)
[2023-11-24] MEDS ORDERED: Albuterol 0.083% Neb Soln 2.5 MG/3 ML UD IH PRN (04:15)
[2023-11-24] MEDS ORDERED: Dextrose (Glucose) 15 GM (4 x 3.75 GM) Chewable TABLET PACK PO PRN (04:30)
[2023-11-24] MEDS ORDERED: Glucagon 1 MG VIAL IM PRN (04:30)
[2023-11-24] MEDS ORDERED: Dextrose 50% Water 25 GM/50 ML SYRINGE IV PRN (04:30)
[2023-11-24 06:08] LABS: BASO % 0.2 % (0.0-2.0); GRAN # 13.2 K/mm3 (1.4-6.5); GRAN % 83.3 % (42.2-75.2); LYMPH # 1.4 K/mm3 (1.2-3.4); LYMPH % 8.8 % (20.0-51.0); MEAN CELL VOLUME 97 fl (80.0-100.0); MEAN CORPUSCULAR HGB CONC 31 g/dl (33.0-37.0); MEAN PLATELET VOLUME 9.4 fl (7.4-10.4); MONO # 1.2 K/mm3 (0.1-0.6); MONO % 7.3 % (1.7-9.3); PLATELET COUNT 334 K/mm3 (130-400)
[2023-11-24 06:11] LABS: HEMATOCRIT 26.1 % (42.0-52.0); HEMOGLOBIN 8.1 g/dl (13.5-18.0); MEAN CORPUSCULAR HEMOGLOBIN 30 pg (27-31)
[2023-11-24 06:23] LABS: CALCIUM 8.5 mg/dL (8.4-10.2); CREATININE, serum 2.7 mg/dL (0.72-1.25); POTASSIUM 4.4 mEq/L (3.5-4.5)
--- NOTE | 2023-11-24 06:39 | NUR ---
Pt. has been stable since admission. Pt. has not been up to ambulate this shift, and requires the x2 assist for repositioning. Q2 turns have been implemented. Sepulveda catheter to dependent drainage, still draining cloudy, yellow urine. Pt. has urology and cardiology consults today- both physicians made aware. Pt. is now NPO per floral decorator, Dr. Garcia, orders. Pt. denies pain but is c/o very little sleep last night. No further requests or complaints at this time.
--- NOTE | 2023-11-24 06:48 | NUR ---
Agree with COMPONENT ASSEMBLER admission assessment.
[2023-11-24] MEDS ORDERED: Insulin Lispro (HumaLOG) SQ SCH (08:00)
--- NOTE | 2023-11-24 08:45 | NUR ---
TELEMTRY TECH CALLED TO NOTIFY NURSE THAT PATIENT LEADS WERE OFF. THIS NURSE CHECKED ON PATIENT. PATIENT GETTING AN ECHO AT THIS TIME. DAUGHTER AT BEDSIDE. THIS NURSE EXPLAINED TO PATIENT HE IS NPO PER CARDIOLOGY. VERBALIZED UNDERSTANDING. SHIFT ASSESSMENT COMPLETE. IYER CATHETER DRAINING DEPENDENTLY WITH PINK/ORANGE URINE NOTED. ALL NEEDS MET AT THIS TIME. CALL LIGHT WITHIN REACH.
[2023-11-24] MEDS ORDERED: Empagliflozin 25 MG TAB PO SCH (09:00)
[2023-11-24] MEDS ORDERED: Ferrous Sulfate 325 MG TAB PO SCH (09:00)
[2023-11-24] MEDS ORDERED: Cyanocobalamin (Vit B-12) 1,000 MCG TAB PO SCH (09:00)
[2023-11-24] MEDS ORDERED: Docusate Sodium 100 MG CAP PO SCH (09:00)
[2023-11-24] MEDS ORDERED: Apixaban 2.5 MG TABLET PO SCH (09:00)
[2023-11-24] MEDS ORDERED: Folic Acid 1 MG TAB PO SCH (09:00)
[2023-11-24] MEDS ORDERED: Furosemide 40 MG/4 ML VIAL IV ONE (11:45)
--- NOTE | 2023-11-24 12:31 | NUR ---
antichecking iron worker met with patient, patient's (Eloisa P# [phone]) and patient's daughter (Mica P# [phone]) to discuss discharge planning. Patient lives in [place] with his Eloisa and daughter Mica. Patient is currently at [facility] in rehab. PCP is Dr. Strickland, [facility]. Patient has a DPOA-HC in the EMR with Eloisa as primary and Mica as secondary. DME is a walker. MARIA GUADALUPE discussed how patient has been doing at [facility]. Mica expressed that they had concerns because they don't do vitals often, only "every 8 hours". Eloisa reported if she wouldn't have been there patient would have been in worse condition. Mica stated he would have turned "septic." Mica stated she wants patient to be in IPR and wants to hear from Reba, IPR director, why patient was not accepted after last hospitalization. Mica and Eloisa stated they feel patient needs to be in a hospital to be monitored closely while getting rehab. MARIA GUADALUPE explained that if their IPR unit is unable to accept patient they could look at the [facility] for [facility]ing Bed or [facility]. Patient's family stated [facility] would not work for them. Mica stated again she wanted to speak with Reba with IPR. MARIA GUADALUPE explained she would relay the message but if patient not accepted there they would be looking at returning to [facility] or the other options mentioned. MARIA GUADALUPE will continue to follow. MARIA GUADALUPE notified Reba with [facility] about the conversation above. Reba expressed she was in a meeting but may be able to stop by today and she would review patient's information. MARIA GUADALUPE notified patient, patient's and daughter that Reba is currently in a meeting and would not be available until this afternoon to meet. Mica stated that she feels the patient should be evaluated over the next couple days then they could make their decision. MARIA GUADALUPE explained Reba is going to review patient's case; however, Mica requested she speak with Reba about why he was not admitted during the last hospital stay to [facility], so if she is able to come visit her it would be this afternoon. Patient's and patient thanked social media intern. MARIA GUADALUPE faxed updates to [facility]. Discharge plan: IPR consult, return to [facility] if [facility] unable to accept.
--- NOTE | 2023-11-24 12:41 | NUR ---
Data: Patient's daughter accepted spiritual care visit offered during Cheese Factory Worker rounds. Patient's was attempting to order food for Patient. Daughter expressed her concerns about the care at [facility]. She expressed her desire to have her father do his therapy here at this hospital in the IPR unit. Doctor came into room for rounding. Cheese Factory Worker waited outside room. When Doctor completed visit, Cheese Factory Worker entered room to complete spiritual care visit. Assessment: Patient was sleepy and hungry. Daughter is frustrated. is feels unheard. Plan of Care: Cheese Factory Worker validated each concern expressed; provided supportive listening; and prayer. Patient's Daughter and thanked Cheese Factory Worker for the visit. Chaplains will remain available as needed/requested while Patient is admitted to this hospital.
--- NOTE | 2023-11-24 20:00 | NUR ---
Pt. requested this nurse change mepilex dressing placed yesterday to coccyx. Dressing changed. Visualized stage 2 pressure ulcer to coccyx approx 1" in diameter. Discarded dressing had scant amount of dark red drainage. Administered scheduled meds per JUL. Shift assessment performed. Noted diminished lung sounds at CHERRI bases upon auscultation. However, CHERRI upper lobes are clear. Trunkal edema noted w/ +1 pitting and edema to BLE extremeties +3 pitting. No other outstanding findings. Pt. denies pain at this time. Call light in reach, bed alarm activated.
[2023-11-24] MEDS ORDERED: Melatonin 3 MG TAB PO SCH (21:00)
[2023-11-24] MEDS ORDERED: Atorvastatin 40 MG TAB PO SCH (21:00)
[2023-11-25] VITALS (12 sets, daily range): BP systolic 106–136; BP diastolic 65–73; PULSE 78–80; TEMP 97.6–99.7
--- NOTE | 2023-11-25 04:54 | NUR ---
Pt. resting in bed w/ eyes closed through most of shift- respirations even and unlabored. Pt. denies pain when asked. Pt. is on room air. Indwelling catheter to dependent drainage. Turning pt. Q2H. Pt. is x2 assist to turn and has not been up to ambulate during this shift. No requests or complaints at this time. Call light in reach.
[2023-11-25 06:36] LABS: BASO % 0.2 % (0.0-2.0); EOS % 0.1 % (0.0-4.0); GRAN # 13.2 K/mm3 (1.4-6.5); GRAN % 82.2 % (42.2-75.2); HEMATOCRIT 25.1 % (42.0-52.0); HEMOGLOBIN 7.8 g/dl (13.5-18.0); LYMPH # 1.6 K/mm3 (1.2-3.4); LYMPH % 10.1 % (20.0-51.0); MEAN CELL VOLUME 96 fl (80.0-100.0); MEAN CORPUSCULAR HEMOGLOBIN 30 pg (27-31); MEAN CORPUSCULAR HGB CONC 31 g/dl (33.0-37.0); MEAN PLATELET VOLUME 9.7 fl (7.4-10.4); MONO % 6.5 % (1.7-9.3); PLATELET COUNT 376 K/mm3 (130-400); RED BLOOD COUNT 2.61 M/mm3 (4.20-5.60)
[2023-11-25 06:53] LABS: CALCIUM 8.4 mg/dL (8.4-10.2); CREATININE, serum 2.85 mg/dL (0.72-1.25)
--- NOTE | 2023-11-25 08:00 | NUR ---
PT ALERT AND EATING BREAKFAST IN BED. DAUGHTER BEDSIDE. MEDS GIVEN PER ORDER. PT DENIES ANY PAIN AT THIS TIME. INT TO LEFT WRIST FLUSHING WITH NO ISSUES. PT HAS A STAGE 2 ULCER ON SACRAL AREA. MEPILEX APPLIED. IYER PATENT AND DRAINING WITHOUT ISSUES. PACEMAKER SITE TO LEFT UPPER CHEST CLEAN, DRY, AND INTACT. BED IN LOWEST POSITION. CALL LIGHT WITHIN REACH. BED ALARM ON. NO FURTHER NEEDS.
[2023-11-25] MEDS ORDERED: Furosemide 40 MG/4 ML VIAL IV ONE (09:45)
--- NOTE | 2023-11-25 11:03 | NUR ---
Social work student faxed updates to [facility].
--- NOTE | 2023-11-25 11:11 | NUR ---
YELLOW, CLOUDY URINE NOTED IN IYER TUBING.
--- NOTE | 2023-11-25 12:01 | NUR ---
track service worker spoke with IPR director, Reba, whom is continuing to follow patient's case. SW Student faxed clinical updates to [facility]. SW updated [place] at [facility] that the family was wanting IPR but would likely return to them if IPR is unabel to accept. Discharge plan: [facility] vs [facility]
--- NOTE | 2023-11-25 21:45 | NUR ---
Pt. is resting in bed w/ eyes closed upon entry. Administered scheduled meds per JUL. Pt. was oriented at beginning of NOC, but confusion seems to be progressing into the night. Pt. is oriented to self only, but reorients easily. Noted during shift assessment, pt's generalized edema appears worse than 11/23 NOC. Scattered bruising to L chest and LUE. Edges well approximated at L chest incision. Dressing to coccyx CDI. Lung sounds are clear at CHERRI upper lobes, but diminished at bases. Pt's respirations are even and unlabored, but respirations are shallow. Pt's bowel sounds are hypoactive in all quadrants. However, pt's last BM was early today per bedside shift report. Indwelling catheter to dependent drainage, securement device in place, draining cloudy yellow urine w/ sediment. Pt. denies pain. Pt. requesting not to be woken tonight. Pt. educated on plan of care through the night. Pt. expresses understanding. No further requests or complaints. Turned pt. to L side at thise time. Call light in reach, bed alarm activated.
[2023-11-26] VITALS (12 sets, daily range): BP systolic 105–123; BP diastolic 64–76; PULSE 79–82; TEMP 98–99
--- NOTE | 2023-11-26 00:45 | NUR ---
Pt is increasingly confused as night progresses. Pt. is asking for "the kid" to be removed from his bedroom so that he can sleep. Unable to orient pt. at this time. PCT, Elizabeth, reports that earlier pt. did not seem oriented to place. Although disoriented, pt. maintains pleasant affect.
--- NOTE | 2023-11-26 02:47 | NUR ---
Positive blood cultures called to [facility] Johnson.
[2023-11-26 06:32] LABS: BASO # 0.1 K/mm3 (0.0-0.2); BASO % 0.3 % (0.0-2.0); EOS # 0.1 K/mm3 (0.0-0.7); EOS % 0.5 % (0.0-4.0); GRAN # 12.2 K/mm3 (1.4-6.5); GRAN % 81.4 % (42.2-75.2); LYMPH # 1.5 K/mm3 (1.2-3.4); LYMPH % 9.9 % (20.0-51.0); MEAN CELL VOLUME 95 fl (80.0-100.0); MEAN CORPUSCULAR HGB CONC 31 g/dl (33.0-37.0); MEAN PLATELET VOLUME 9.7 fl (7.4-10.4); MONO % 6.9 % (1.7-9.3); PLATELET COUNT 382 K/mm3 (130-400); RED BLOOD COUNT 2.41 M/mm3 (4.20-5.60); REDCELL DISTRIBUTION WIDTH-CV 15.7 % (11.5-14.5)
[2023-11-26 06:43] LABS: HEMATOCRIT 22.9 % (42.0-52.0); HEMOGLOBIN 7.1 g/dl (13.5-18.0); MEAN CORPUSCULAR HEMOGLOBIN 29 pg (27-31)
[2023-11-26 06:47] LABS: CALCIUM 8.1 mg/dL (8.4-10.2); CREATININE, serum 2.8 mg/dL (0.72-1.25); POTASSIUM 3.5 mEq/L (3.5-4.5)
--- NOTE | 2023-11-26 07:04 | NUR ---
Pt's confusion persists through the night. Difficult to reorient. Pt. has had multiple loose stools during the night. Pt. ambulates w/ x2 assistance, walker, and gait belt to [facility]. Pt. is on room air. Indwelling catheter to dependent drainage- draining cloudy yellow urine w/ sediment. Pt. denies pain. No request or complaints at this time. Fall precautions in place. Call light in reach.
--- NOTE | 2023-11-26 08:05 | NUR ---
PT LAYING IN BED UPON ENTERING, DAUGHTER AT BEDSIDE. ASSESSMENT DONE, MEDS GIVEN PER ORDER. PT DENIES PAIN. IYER PATENT AND DRAINING WITHOUT ISSUES, SECURE TO THIGH. INT TO LEFT WRIST PATENT. STAGE 2 PRESSURE IN JURY NOTED TO SACRUM, MEPILEX IN PLACE. PT DENIES NEEDS. BED IN LOWEST POSITION, CALL LIGHT IN REACH, BED ALARM ON
[2023-11-26] MEDS ORDERED: Furosemide 40 MG/4 ML VIAL IV ONE (10:45)
--- NOTE | 2023-11-26 13:02 | NUR ---
steam trap worker attended interdisciplinary clinical rounding with Dr. Aldrich whom expressed patient would not be ready for discharge until possibly Wednesday due to medical concerns. SW notified [facility] and [facility] of the above information. SW notified [facility] IPR is following still. SW met with patient and his daughter to update them that IPR is still following but if they were unable to accept the plan would be to return to [facility]. Patient and daughter understood. Daughter stated she wanted [facility] to know that since the last admission patient has not been able to get up out of bed or chair on his own, go to the bathroom on his own or do any stairs. MARIA GUADALUPE explained [facility] will review the PT and OT notes. SW explained she would be back on Wednesday and to reach out if they have any questions. Daughter and patient thanked perinatal social worker. MARIA GUADALUPE notified Reba, IPR director, of the above information. They are continuing to review and would not make a final decision until patient was more medically stable. Discharge plan: [facility] vs [facility] - SNF
[2023-11-27] VITALS (12 sets, daily range): BP systolic 115–142; BP diastolic 70–79; PULSE 78–83; TEMP 97.4–98.6
[2023-11-27] MEDS ORDERED: Furosemide 40 MG/4 ML VIAL IV ONE (15:30)
--- NOTE | 2023-11-27 17:03 | NUR ---
PATIENT HAS HAD UNEVENTFUL AFTERNOON. DOING CROSSWORD PUZZLES WITH PATIENT. DENIES PAIN OR DISCOMFORT. ALL NEEDS MET AT THIS TIME. WILL MONITOR
[2023-11-28] VITALS (12 sets, daily range): BP systolic 104–148; BP diastolic 69–81; PULSE 79–82; TEMP 97–98.7
[2023-11-28 06:44] LABS: MEAN CELL VOLUME 94 fl (80.0-100.0); MEAN CORPUSCULAR HGB CONC 32 g/dl (33.0-37.0); MEAN PLATELET VOLUME 9.4 fl (7.4-10.4); PLATELET COUNT 476 K/mm3 (130-400); RED BLOOD COUNT 2.92 M/mm3 (4.20-5.60); REDCELL DISTRIBUTION WIDTH-CV 15.4 % (11.5-14.5)
[2023-11-28 06:50] LABS: HEMATOCRIT 27.5 % (42.0-52.0); HEMOGLOBIN 8.7 g/dl (13.5-18.0); MEAN CORPUSCULAR HEMOGLOBIN 30 pg (27-31)
[2023-11-28 07:17] LABS: CALCIUM 8.3 mg/dL (8.4-10.2); CREATININE, serum 2.32 mg/dL (0.72-1.25); POTASSIUM 3.4 mEq/L (3.5-4.5)
[2023-11-28 07:43] LABS: ANISOCYTOSIS 1+; BAND 1 % (0-10); EOSINOPHIL 4 % (0-4); HYPOCHROMIA 1+; LYMPHOCYTE 11 % (20.0-51.0); NEUTROPHILS 79 % (42.0-75.2); PLATELET ESTIMATE NORMAL (NORMAL)
[2023-11-28] MEDS ORDERED: Furosemide 40 MG/4 ML VIAL IV ONE (08:15)
[2023-11-28] MEDS ORDERED: Potassium Bicarbonate/Citrate 20 MEQ Effervescent TAB PO ONE (08:15)
--- NOTE | 2023-11-28 09:11 | NUR ---
notified by telecommunications administrator to check leads, all leads are in place and connected
--- NOTE | 2023-11-28 13:34 | NUR ---
SW sent clinical updates to [facility] Discharge plan: IPR vs SNF
--- NOTE | 2023-11-28 21:00 | NUR ---
Pt. resting in bed upon entry. Administered scheduled meds per JUL. Neuro check complete. Pt. is A&O x4, PERRLA, and moving extremeties equally. Neuro check scores are WNL. Pt's orientation is improved since this nurse last worked with pt. 11/25. Shift assessment complete as well. Pt. is on room air and respirations are shallow. O2 saturation is 97% Lung sounds are clear at bilateral upper lobes and lower left lobe, but lower right lobe is diminished. Pt. denies BM today, but is passing flatus. Bowel sounds are active in all quadrants. Indwelling catheter to dependent drainage w/ securement device in place- draining yellow urine w/ sediment. Pt. has stage 2 pressure ulcer to coccyx dressed w/ mepilex. Dressing CDI. BLE are edemetous pitting +2. All other findings are WNL. Pt. denies pain. No complaints or request at this time.
[2023-11-29] VITALS (12 sets, daily range): BP systolic 117–136; BP diastolic 56–84; PULSE 79–81; TEMP 96–97.8
--- NOTE | 2023-11-29 06:18 | NUR ---
Pt. had uneventful night- rested in bed w/ eyes closed and VSS throughout the night. Maintained turn schedule. Fall precautions in place. Orientation remained improved since this nurse last worked w/ pt. 11/25. This moring pt. is A&O x3- time was not assessed. Indwelling catheter to dependent drainage w/ securement device in place- draining yellow urine w/ trace sediment. Pt. has pleasant affect this morning. Pt. denies pain or requests. Call light in reach.
[2023-11-29 06:35] LABS: MEAN CELL VOLUME 96 fl (80.0-100.0); MEAN CORPUSCULAR HGB CONC 31 g/dl (33.0-37.0); MEAN PLATELET VOLUME 9.1 fl (7.4-10.4); PLATELET COUNT 520 K/mm3 (130-400); RED BLOOD COUNT 2.91 M/mm3 (4.20-5.60); REDCELL DISTRIBUTION WIDTH-CV 15.4 % (11.5-14.5)
[2023-11-29 06:42] LABS: HEMATOCRIT 27.9 % (42.0-52.0); HEMOGLOBIN 8.6 g/dl (13.5-18.0); MEAN CORPUSCULAR HEMOGLOBIN 30 pg (27-31)
[2023-11-29 06:56] LABS: CALCIUM 8.3 mg/dL (8.4-10.2); CREATININE, serum 2.37 mg/dL (0.72-1.25); POTASSIUM 3.4 mEq/L (3.5-4.5)
[2023-11-29 08:10] LABS: ANISOCYTOSIS 1+; BAND 6 % (0-10); LYMPHOCYTE 17 % (20.0-51.0); NEUTROPHILS 71 % (42.0-75.2); OVALOCYTES 1+; PLATELET ESTIMATE INCREASED (NORMAL)
--- NOTE | 2023-11-29 09:30 | NUR ---
Patient resting in bed, alert and oriented x 3, He finished his breakfast, drinking his supplement. Assessment complete, meds given. Cath care provided. Some fluid accumulation noted in scrotom. Telemetry adjusted. Pt repositioned. Call light within reach, bed alarm on.
[2023-11-29] MEDS ORDERED: Potassium Bicarbonate/Citrate 20 MEQ Effervescent TAB PO ONE (13:30)
[2023-11-29] MEDS ORDERED: *Potassium Replacement Protocol MC SCH (13:30)
[2023-11-29] MEDS ORDERED: Furosemide 40 MG/4 ML VIAL IV ONE (13:30)
--- NOTE | 2023-11-29 14:04 | NUR ---
SW student faxed clinical updates to [facility]. Discharge plan: IPR vs SNF
--- NOTE | 2023-11-29 16:07 | NUR ---
laceworker was notified [facility]PR is continuing to follow. MARIA GUADALUPE met with DENA Kenyon, whom expressed patient may discharge in the next 24-48 hours. Discharge plan: [facility] vs [facility]
--- NOTE | 2023-11-29 20:45 | NUR ---
Administered scheduled meds per JUL. Shift assessment complete. Pt. is alert and oriented to self and time. Pt. reorients easily. Confusion has increased since previous NOC. BLE remain edemetous. Pt. requested SCDs at this time. SCDs applied. Lung sounds are diminished at CHERRI bases and clear at upper CHERRI lobes upon auscultation. Bowel sounds are audible in all quadrants. Pt. reports last BM was several days ago, endorses passing flatus. Indwelling catheter to dependent drainage w/ securement device in place-draining yellow urine w/ sediment. Pt. denies pain at this time.
[2023-11-30] VITALS (12 sets, daily range): BP systolic 108–136; BP diastolic 68–84; PULSE 79–81; TEMP 97.6–98.4
--- NOTE | 2023-11-30 04:25 | NUR ---
Pt. is more confused as night continues. More difficult to orient since start of shift. Otherwise, pt. has been stable throughout the night. Sepulveda draining dark yellow/delio urine. Urine has gotten darker through shift.
[2023-11-30 06:19] LABS: MEAN CELL VOLUME 96 fl (80.0-100.0); MEAN CORPUSCULAR HGB CONC 31 g/dl (33.0-37.0); MEAN PLATELET VOLUME 9.1 fl (7.4-10.4); PLATELET COUNT 528 K/mm3 (130-400); RED BLOOD COUNT 2.89 M/mm3 (4.20-5.60); REDCELL DISTRIBUTION WIDTH-CV 15.6 % (11.5-14.5)
[2023-11-30 06:20] LABS: HEMATOCRIT 27.6 % (42.0-52.0); HEMOGLOBIN 8.6 g/dl (13.5-18.0); MEAN CORPUSCULAR HEMOGLOBIN 30 pg (27-31)
[2023-11-30 07:01] LABS: CALCIUM 8.2 mg/dL (8.4-10.2); CREATININE, serum 2.1 mg/dL (0.72-1.25); POTASSIUM 3.5 mEq/L (3.5-4.5)
[2023-11-30 07:43] LABS: ANISOCYTOSIS 1+; EOSINOPHIL 2 % (0-4); LYMPHOCYTE 30 % (20.0-51.0); NEUTROPHILS 64 % (42.0-75.2); PLATELET ESTIMATE INCREASED (NORMAL)
[2023-11-30 07:44] LABS: HYPOCHROMIA 2+; OVALOCYTES 1+
--- NOTE | 2023-11-30 09:00 | NUR ---
Patient resting in bed, daugter at bedside. Denies any pain or discomfort. Assessment completed, meds given. Call light within reach, bed alarm on.
--- NOTE | 2023-11-30 09:24 | NUR ---
construction ironworker helper attended interdisciplinary clinical rounding with Dr. Aldrich. Patient is not medically ready for discharge. Dr. Aldrich estimated discharge or Wednesday. secure emailed updates to [facility]. Discharge plan: [facility] vs [facility]
[2023-11-30] MEDS ORDERED: Furosemide 40 MG/4 ML VIAL IV SCH (09:30)
[2023-11-30] MEDS ORDERED: Potassium Bicarbonate/Citrate 20 MEQ Effervescent TAB PO SCH (10:00)
--- NOTE | 2023-11-30 21:30 | NUR ---
Patient resting in bed. A&O x4 at this time. Denies any pain at this time. needs met. Assessment complete. IV in left wrist flushes easily without complicaitons. Call light and personal items in reach. Bed in low position and bed alarm on.
[2023-12-01] VITALS (11 sets, daily range): BP systolic 112–136; BP diastolic 68–84; PULSE 77–85; TEMP 97.1–98.5
[2023-12-01 07:41] LABS: HEMATOCRIT 28.4 % (42.0-52.0); HEMOGLOBIN 8.9 g/dl (13.5-18.0); MEAN CELL VOLUME 95 fl (80.0-100.0); MEAN CORPUSCULAR HEMOGLOBIN 30 pg (27-31); MEAN CORPUSCULAR HGB CONC 31 g/dl (33.0-37.0); PLATELET COUNT 540 K/mm3 (130-400); REDCELL DISTRIBUTION WIDTH-CV 15.7 % (11.5-14.5)
[2023-12-01 08:03] LABS: ALBUMIN 2.2 g/dL (3.4-4.8); BILIRUBIN,TOTAL 0.2 mg/dL (0.2-1.2); CALCIUM 8.4 mg/dL (8.4-10.2); CREATININE, serum 1.93 mg/dL (0.72-1.25); MAGNESIUM 1.9 mg/dL (1.6-2.6); TOTAL PROTEIN 5.6 g/dl (6.2-8.1)
[2023-12-01 08:08] LABS: BAND 1 % (0-10); EOSINOPHIL 1 % (0-4); LYMPHOCYTE 17 % (20.0-51.0); METAMYELOCYTE 1 % (0-0); NEUTROPHILS 76 % (42.0-75.2)
[2023-12-01 08:09] LABS: ANISOCYTOSIS 1+
[2023-12-01 08:10] LABS: HYPOCHROMIA 2+; PLATELET ESTIMATE INCREASED (NORMAL)
[2023-12-01] MEDS ORDERED: Furosemide 20 MG TAB PO SCH (09:00)
--- NOTE | 2023-12-01 09:30 | NUR ---
PT LAYING IN BED UPON ENTERING, DAUGHTER AT BEDSIDE. ASSESSMENT DONE, MEDS GIVEN PER ORDER. PT DENIES PAIN. IYER PATENT WITH SEDIMENT NOTED. STAGE 2 TO SACRUM, MEPILEX IN PLACE. PACEMAKER SITE TO LEFT CHEST CLEAN DRY AND INTACT. SPECIALTY MATTRESS IN PLACE. PT DENIES NEEDS. BED IN LOWEST POSITION, CALL LIGHT IN REACH, BED ALARM ON
[2023-12-01] MEDS ORDERED: Furosemide 40 MG TAB PO SCH (10:05)
--- NOTE | 2023-12-01 13:40 | NUR ---
sand car worker attended clinical rounding and was informed pt will likely discharge tomorrow. MARIA GUADALUPE informs the team [facility] is reviewing and [facility] can take pt back. Dr. Michael Son spoke with pt's and daughter who report interest in [facility], but [facility] is their first choice. MARIA GUADALUPE met with pt, , and daughter who was leaving to complete IM from medicare. , Eloisa signed and verbalized understanding. Copy provided and original in chart. SW discussed discharge plans and how she overheard they want [facility]. [place] [facility] and , Eloisa add they would also like [facility]. MARIA GUADALUPE advised she will send these and have them review. MARIA GUADALUPE was later informed [facility] Director Reba talked with pt and and was declined. SW student emailed referrals to [facility] and [facility]. MARIA GUADALUPE left a voicemail to follow-up with Maxine at [facility]. MARIA GUADALUPE spoke with [facility] who later reports they can accept pt. MARIA GUADALUPE called and informed her. She was very agreeable and verbalized relief with not having to go back to [facility]. MARIA GUADALUPE advised this would be arranged for tomorrow. No further questions. MARIA GUADALUPE informed MACKENZIE Brambila of the above. Discharge Plan: [facility]
--- NOTE | 2023-12-01 22:30 | NUR ---
Patient resting in bed after shower. Denies any pain at this time. Needs met. Assessment complete. IV in left wrist flushes easily without complications. Call light and personal items in reach. Bed in low position and bed alarm on.
[2023-12-02 00:26] VITALS: BP 136/79; PULSE 81; TEMP 98.1
[2023-12-02 01:43] VITALS: BP_SYST 136
[2023-12-02 03:08] VITALS: BP 123/77; PULSE 80; TEMP 97.5
[2023-12-02 04:28] VITALS: BP_SYST 123
[2023-12-02 06:02] LABS: MEAN CELL VOLUME 95 fl (80.0-100.0); MEAN CORPUSCULAR HGB CONC 31 g/dl (33.0-37.0); MEAN PLATELET VOLUME 8.7 fl (7.4-10.4); PLATELET COUNT 535 K/mm3 (130-400); RED BLOOD COUNT 3.05 M/mm3 (4.20-5.60); REDCELL DISTRIBUTION WIDTH-CV 15.8 % (11.5-14.5)
[2023-12-02 06:17] LABS: HEMATOCRIT 29.1 % (42.0-52.0); MEAN CORPUSCULAR HEMOGLOBIN 30 pg (27-31)
[2023-12-02 06:19] LABS: CALCIUM 8.4 mg/dL (8.4-10.2); CREATININE, serum 1.75 mg/dL (0.72-1.25); POTASSIUM 3.9 mEq/L (3.5-4.5)
[2023-12-02 07:41] VITALS: BP 125/83; PULSE 80; TEMP 97.4
[2023-12-02] MEDS ORDERED: AMOXICILLIN 8751 TAB PO (08:48)
[2023-12-02] MEDS ORDERED: LASIX 40MG TABL40 MG PO (08:49)
[2023-12-02 09:15] VITALS: BP_SYST 125
--- NOTE | 2023-12-02 09:15 | NUR ---
PT SITTING IN CHAIR UPON ENTERING, DAUGHTER AT BEDSIDE. ASSESSMENT DONE, MEDS GIVEN PER ORDER. PT DENIES PAIN OR NEEDS AT THIS TIME. IYER PATENT WITHOUT ISSUES. 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 INT TO LEFT WRIST PATENT. PT DENIES NEEDS. CHAIR ALARM ON, CALL LIGHT IN REACH.
--- NOTE | 2023-12-02 10:12 | NUR ---
farmworker animal attended clinical rounding and was informed pt can discharge to [facility] today. MARIA GUADALUPE faxed updates and discharge orders to Verenice at [facility]. MARIA GUADALUPE spoke with RN Patty who confirms anytime from 11-12pm works for transport. [facility] confirmed 11:15am. MARIA GUADALUPE informed RN and wrote this on the white board. IM from Medicare completed yesterday. Discharge Plan: 11:15am [facility]
--- NOTE | 2023-12-02 11:00 | NUR ---
PT DRESSED IN PERSONAL CLOTHES AND IV REMOVED. IYER IN PLACE FOR DISCHARGE. TRANSFER PACKET GIVEN TO [facility]. PTS AND DAUGHTER AT BEDSIDE WITH PTS BELONGINGS. PT DENIES NEEDS AND TRANSFERRED TO WHEELCHAIR. PT HANDED OFF TO TRANSPORT AND LEAVING WITH FAMILY
== END 2023-12-02 11:40 | DRG 871 ==
LOC: COL.ER 18:49 → MEDICAL 21:57
PROVIDERS: Hospitalist; Nurse Practitioner Family; Nurse Practitioner Primary Care; Physician Assistant; ADMIT Internal Medicine
DX: A41.9 Sepsis, unspecified organism (principal); I50.33 Acute on chronic diastolic (congestive) heart failure; N13.1 Hydronephrosis with ureteral stricture, not elsewhere classified; J90 Pleural effusion, not elsewhere classified; N17.9 Acute kidney failure, unspecified; N18.4 Chronic kidney disease, stage 4 (severe); R60.1 Generalized edema; E88.09 Other disorders of plasma-protein metabolism, not elsewhere classified; E78.5 Hyperlipidemia, unspecified; I48.91 Unspecified atrial fibrillation; Z99.2 Dependence on renal dialysis; E87.5 Hyperkalemia; D64.9 Anemia, unspecified; Z86.73 Personal history of transient ischemic attack (TIA), and cerebral infarction without residual deficits; E11.9 Type 2 diabetes mellitus without complications; Z79.4 Long term (current) use of insulin; R53.1 Weakness; R53.81 Other malaise; L89.159 Pressure ulcer of sacral region, unspecified stage; Z79.01 Long term (current) use of anticoagulants
CPT/HCPCS: A9270; A9284; J0696; J1815; J1940; J7030; P9047

== ENCOUNTER 2024-01-26 08:39 | Day surgery (SDC) | payer MEDICARE, BC ==
[~2024-01-26] VITALS: Ht 177.8 cm; Wt 78.4 kg
[~2024-01-26 08:39] MED LIST changes: +AMOXICILLIN 8751 TAB PO; +LASIX 20MG TABL20 MG PO; +LASIX 40MG TABL40 MG PO; +LR 1,000 ML IV SCH
[2024-01-26 09:11] VITALS: BP 115/65; PULSE 86; TEMP 97.6
--- NOTE | 2024-01-26 09:45 | NUR ---
The patient ambulated back to [facility] independently using a slow, steady gait and his walker. The patient appears alert and oriented and denies any pain or nausea at this time. Vital signs obtaine. Consent signed. 18G IV started in left wrist with one stick, LR Infusing without difficulty. Blood obtained from IV for labs as ordered. Finger stick blood sugar 101. Home medications to be reconcilled, written list provided by the patient's on admission. Assessment completed. Warm blanket provided. Family brought back to be at his bedside. Denies any further needs at this time.
[2024-01-26 09:51] LABS: HEMOGLOBIN 10.8 g/dl (13.5-18.0)
[2024-01-26 09:53] LABS: HEMATOCRIT 34.3 % (42.0-52.0)
[2024-01-26 10:08] LABS: CALCIUM 9.5 mg/dL (8.4-10.2); CREATININE, serum 1.46 mg/dL (0.72-1.25); POTASSIUM 4.6 mEq/L (3.5-4.5)
[2024-01-26] MEDS ORDERED: FARXIGA5 PO (10:12)
[2024-01-26] MEDS ORDERED: LASIX 40MG TABL40 MG PO (10:13)
--- NOTE | 2024-01-26 10:25 | NUR ---
Agustin Borden CRNA was notified of the patient's home medications of ozempic and his last dose of Saturday 01/20. He verbalized undestanding and informed the nurse at the patient will need to be cancelled today. The nurse is to let Dr. Roy know.
--- NOTE | 2024-01-26 10:30 | NUR ---
Dr. Roy was notified that the patient has be cancelled today due to having ozempic on Saturday 01/20. He verbalized understanding and stated that patient will be rescheduled to Saturday 01/27. He also asked Agustin Trinidad CRNA to go speak with the patient and answer questions regarding the patient's home medications prior to surgery on Wednesday.
[2024-01-26] MEDS ORDERED: PRESERVISION A1 EAC3 PO (10:32)
[2024-01-26] MEDS ORDERED: COLACE 100100 MG/CAP PO (10:33)
--- NOTE | 2024-01-26 11:04 | NUR ---
Dr. Garcia's office was called to verify if the patient is ok to continue being off his Eliquis or if he needs to bridge with another medication now that his surgery has been postponed 2 more days. The nurse had to leave a message with a callback number.
--- NOTE | 2024-01-26 11:25 | NUR ---
The patient was escorted to the waiting room to meet his family and leave. The patient's belongings were sent with him. The patient was instructed the nurse has left a message with Dr. Garcia's lois regarding the patient's Eliquis being stopped prior to surgery and any further orders now that he has been postponed 2 more days. The nurse told the patient and his family that she will call once she has heard back from the office with orders regarding the Eliquis.
== END 2024-01-26 11:25 | disposition home or self-care (01) ==
LOC: SDCO 08:39
PROVIDERS: Nurse Anesthetist, Certified Registered
DX: N40.1 Benign prostatic hyperplasia with lower urinary tract symptoms (principal); R35.0 Frequency of micturition; R30.0 Dysuria; R39.14 Feeling of incomplete bladder emptying; Z53.9 Procedure and treatment not carried out, unspecified reason; I13.0 Hypertensive heart and chronic kidney disease with heart failure and stage 1 through stage 4 chronic kidney disease, or unspecified chronic kidney disease; I50.9 Heart failure, unspecified; N18.9 Chronic kidney disease, unspecified; E11.22 Type 2 diabetes mellitus with diabetic chronic kidney disease; Z79.4 Long term (current) use of insulin
CPT/HCPCS: J7120

== ENCOUNTER 2024-01-28 15:22 | Day surgery (SDC) | payer MEDICARE, BC ==
[~2024-01-28 15:22] MED LIST changes: +FARXIGA5 PO; +PRESERVISION A1 EAC3 PO
--- NOTE | 2024-01-28 18:00 | NUR ---
Pt and family updated on surgeon's delay and offered support. Call light in reach.
--- NOTE | 2024-01-28 18:50 | NUR ---
MEDICAL INSURANCE BILLER to bedside to talk with pt and asks for pt's blood sugar to be checked, results 94. Pt's leg bag emptied per family request, 300 mls of yellow urine emptied. Pt and family offered support for their fustration in the delay and deny any other needs.
[2024-01-28] MEDS ORDERED: droPERidol 2.5 MG/ML 2 ML VIAL IV PRN (19:30)
[2024-01-28] MEDS ORDERED: Morphine 2 MG/1 ML VIAL [PACU/SDC ONLY] IV PRN (19:30)
[2024-01-28] MEDS ORDERED: HYDROmorphone 1 MG/1 ML SYRINGE [PACU/SDC ONLY] IV PRN (19:30)
[2024-01-28] MEDS ORDERED: Ondansetron 4 MG/2 ML VIAL IV PRN ×2 (19:30→21:30)
[2024-01-28] MEDS ORDERED: Meperidine 50 MG/ML 1 ML VIAL IV PRN (19:30)
[2024-01-28] MEDS ORDERED: fentaNYL 50 MCG/ML 1 ML SYRINGE/VIAL [PACU/SDC ONLY] IV PRN (19:30)
[2024-01-28] MEDS ORDERED: Lidocaine PF 2% (20 MG/ML) 5 ML VIAL ONE (20:20)
[2024-01-28] MEDS ORDERED: Midazolam 2 MG/2 ML VIAL ONE (20:20)
[2024-01-28] MEDS ORDERED: Tranexamic Acid 1,000 MG/10 ML VIAL ONE (20:42)
[2024-01-28] MEDS ORDERED: Melatonin 3 MG TAB PO PRN (21:00)
[2024-01-28] MEDS ORDERED: Magnes Hydrox (MOM) 80 MG/ML 30 ML CUP PO PRN (21:30)
[2024-01-28] MEDS ORDERED: Hyoscyamine 0.125 MG Sublingual TAB SL PRN (21:30)
[2024-01-28] MEDS ORDERED: Acetaminophen 325 MG TAB PO PRN (21:30)
[2024-01-28] MEDS ORDERED: 1/2 NS & 20 mEq KCl 1,000 ML IV SCH (21:30)
[2024-01-28] MEDS ORDERED: NS Irrig Soln 3000 ML SOLN IR PRN (21:30)
[2024-01-28] MEDS ORDERED: Morphine 4 MG/ML VIAL IV PRN (21:30)
[2024-01-28] MEDS ORDERED: ePHEDrine 50 MG/ML VIAL ONE (21:58)
[2024-01-28] MEDS ORDERED: Albuterol 0.042% Neb Soln 1.25 MG/3 ML UD IH PRN (22:00)
[2024-01-28] MEDS ORDERED: Dextrose 50% Water 25 GM/50 ML SYRINGE IV PRN (22:15)
[2024-01-28] MEDS ORDERED: Dextrose (Glucose) 15 GM (4 x 3.75 GM) Chewable TABLET PACK PO PRN (22:15)
[2024-01-28] MEDS ORDERED: Glucagon 1 MG VIAL IM PRN (22:15)
[2024-01-28 23:55] VITALS: BP 138/77; PULSE 70; TEMP 97.4
--- NOTE | 2024-01-28 23:55 | NUR ---
PT ARRIVED TO ROOM 342 PER BED FROM PACU, ACCOMPANIED BY MACKENZIE DAN, PT'S FAMILY AT BEDSIDE, PT ALERT AND ORIENTED, ON RA. IVF PER PIV IN RH, CHANGED TO INT. PT ABLE TO EAT AND DRINK WITHOUT N/V, PROVIDED WATER, SANDWICH, SUGAR FREE JELLO AND PONCE CRACKERS. CBI RUNNING SLOWLY, URINE IN IYER PEACH, CLEAR. NO C/O PAIN OR DISCOMFORT, REPORTS STILL HAS SOME NUMBNESS IN BOTH LEGS AND FEET FROM SPINAL. ORIENTED TO ROOM, FLOOR AND POC. FAMILY LEFT FOR THE NIGHT.
[2024-01-29] VITALS (9 sets, daily range): BP systolic 110–142; BP diastolic 55–83; PULSE 69–70; TEMP 98
[2024-01-29] MEDS ORDERED: Insulin Lispro (HumaLOG) SQ SCH
[2024-01-29 00:16] LABS: BASO % 0.4 % (0.0-2.0); EOS # 0.1 K/mm3 (0.0-0.7); EOS % 1.9 % (0.0-4.0); GRAN # 1.9 K/mm3 (1.4-6.5); GRAN % 38.6 % (42.2-75.2); HEMOGLOBIN 10.2 g/dl (13.5-18.0); LYMPH # 2.4 K/mm3 (1.2-3.4); LYMPH % 50.2 % (20.0-51.0); MEAN CELL VOLUME 97 fl (80.0-100.0); MEAN CORPUSCULAR HEMOGLOBIN 31 pg (27-31); MEAN CORPUSCULAR HGB CONC 33 g/dl (33.0-37.0); MEAN PLATELET VOLUME 9.6 fl (7.4-10.4); MONO # 0.4 K/mm3 (0.1-0.6); MONO % 7.9 % (1.7-9.3); PLATELET COUNT 216 K/mm3 (130-400); RED BLOOD COUNT 3.25 M/mm3 (4.20-5.60); REDCELL DISTRIBUTION WIDTH-CV 13.9 % (11.5-14.5)
[2024-01-29 00:33] LABS: ALBUMIN 3.3 g/dL (3.4-4.8); BILIRUBIN,TOTAL 0.8 mg/dL (0.2-1.2); CALCIUM 9.3 mg/dL (8.4-10.2); CREATININE, serum 1.37 mg/dL (0.72-1.25); MAGNESIUM 2.3 mg/dL (1.6-2.6); PHOSPHOROUS 3.7 mg/dL (2.3-4.7); TOTAL PROTEIN 6.4 g/dl (6.2-8.1)
[2024-01-29 00:36] LABS: HEMATOCRIT 31.4 % (42.0-52.0)
--- NOTE | 2024-01-29 06:40 | NUR ---
Pt laying in bed. Denies needs at this time. Call light in reach.
--- NOTE | 2024-01-29 07:04 | NUR ---
PT TOLERATING ADA DIET W/O DIFFICULTY, NO N/V. URINE IN IYER REMAINS CLEAR, PEACH COLORED WITH CBI RUNNING AT SLOW RATE. NO C/O PAIN OR DISCOMFORT THIS MORNING. BGM WNL. REPORTS NOW HAS FULL FEELING BACK IN [place]ERRI LOWER EXT. BREAKFAST ORDERED.
--- NOTE | 2024-01-29 08:38 | NUR ---
Pt laying in bed. Family at bedside. A&Ox4. VSS. S1S2. Clear lungs on RA. ABD round, soft, non-tender with audible bowel sounds. Palpable pulses and 4/5 strength in all extremities. Pt denies pain, n/v, headache at this time. CBI running slow, with yellow clear urine in bag. No further needs. Call light in reach.
[2024-01-29] MEDS ORDERED: Nystatin 100,000 Units/GM Ointment 15 GM TUBE TP SCH (09:00)
[2024-01-29] MEDS ORDERED: Ferrous Sulfate 325 MG TAB PO SCH (09:00)
[2024-01-29] MEDS ORDERED: Docusate Sodium 100 MG CAP PO SCH ×2 (09:00)
[2024-01-29] MEDS ORDERED: Furosemide 40 MG TAB PO SCH (09:00)
[2024-01-29] MEDS ORDERED: [UNRECOGNIZED DRUG - OTHER] PO SCH (09:00)
[2024-01-29] MEDS ORDERED: DAPAGLIFLOZIN 5 MG PO SCH (09:00)
--- NOTE | 2024-01-29 09:50 | NUR ---
Pt and family educated on D/C instructions and information. Pt educated on leg bag. Removed INT from R hand. Applied pressure bandage. Removed tele monitor. Answered Pt and family questions. Pt transported to vehicle via by this RN. No further needs.
--- NOTE | 2024-01-29 11:34 | NUR ---
Data: Corrugated Fastener Driver spoke with Patient's and Daughter in the hallway. They expected him to discharge today. Assessment: Both were positive about Patient's hospital stay. Plan of Care: Corrugated Fastener Driver provided supportive listening. Patient has since discharged.
[2024-01-29] MEDS ORDERED: Atorvastatin 40 MG TAB PO SCH (21:00)
== END 2024-01-29 09:51 | disposition home or self-care (01) ==
LOC: SDCO 15:22 → SURG 23:01 → SDCO 01-29 09:51
PROVIDERS: Nurse Practitioner Family
DX: N40.1 Benign prostatic hyperplasia with lower urinary tract symptoms (principal); N13.8 Other obstructive and reflux uropathy; R35.0 Frequency of micturition; N36.8 Other specified disorders of urethra; I48.91 Unspecified atrial fibrillation; N18.4 Chronic kidney disease, stage 4 (severe); E11.22 Type 2 diabetes mellitus with diabetic chronic kidney disease; I13.2 Hypertensive heart and chronic kidney disease with heart failure and with stage 5 chronic kidney disease, or end stage renal disease; N18.5 Chronic kidney disease, stage 5; D63.1 Anemia in chronic kidney disease; I50.30 Unspecified diastolic (congestive) heart failure; I27.20 Pulmonary hypertension, unspecified; E78.5 Hyperlipidemia, unspecified; R41.0 Disorientation, unspecified; Z79.84 Long term (current) use of oral hypoglycemic drugs; Z86.73 Personal history of transient ischemic attack (TIA), and cerebral infarction without residual deficits; Z87.891 Personal history of nicotine dependence; Z79.85 Long-term (current) use of injectable non-insulin antidiabetic drugs; Z79.01 Long term (current) use of anticoagulants; Z95.0 Presence of cardiac pacemaker; Z79.899 Other long term (current) drug therapy
CPT/HCPCS: OP; J2250; J2704; J7120